=== PATIENT | female | born 1990 | race Two or more races ===

== ENCOUNTER 2016-12-04 16:23 | Emergency (ER) | payer MEDICAID ==
[2016-12-04 16:37] VITALS: BP 123/59
[2016-12-04] MEDS ORDERED: HYDROmorphone 2 MG/ML SDV IM ONE (16:55)
[2016-12-04] MEDS ORDERED: Ketorolac 30 MG/ML SDV IM ONE (16:56)
[2016-12-04] MEDS ORDERED: Ondansetron 4 MG Tab.DIS PO SCH (17:00)
--- NOTE | 2016-12-09 15:46 | ER ---
DATE SEEN: 12/04/2016 HISTORY OF PRESENT ILLNESS: This 26-year-old [place] woman comes in with a sharp onset of epigastric discomfort between 12 and 1300 hours today. No unusual foods eaten but on end-inspiration she has pain. No history of heavy lifting, falling, or trauma. She has a past medical history of ulcers, cholecystectomy. She had a cheese burger at 1200 hours. She denies heavy lifting. 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 She is bipolar and has used Lamictal in the past, but has not had Lamictal filled for some time as she has not seen her doctor in some time. Other significant history is dental pain, ovarian cysts, gastritis, migraines. The patient notes that all she ate today was a banana and a cheeseburger. She did not feel there is a relationship to the two foods. When discussing ibuprofen, she states sometimes she has had discomfort with ibuprofen in the past with epigastric abdominal pain. She denies blood in her stool, black tarry stool, constipation, change in bowels, or diarrhea. LAST MENSTRUAL PERIOD: End of October. 4, para 4-0-0-4. The patient is a nonsmoker. MEDICATIONS: None, although she is supposed to be on Lamictal for depression. ALLERGIES: Ibuprofen and Reglan (Metoclopramide). REVIEW OF SYSTEMS: Otherwise is negative. PHYSICAL EXAMINATION: VITAL SIGNS: Blood pressure 123/54, heart rate 73 and regular, respirations 20, oxygen saturation 100%, temperature is 36.8 degrees centigrade. GENERAL: Alert woman. CONSTITUTION: Marked abdominal discomfort. She is lying in a position on her left side. She has most of the pain to right anterior chest. She is not diaphoretic. PERRLA intact. Pharynx without abnormality. No thyromegaly or masses. NECK: No cervical adenopathy. MOUTH: Mucosa is moist. LUNGS: Clear to auscultation without rales, rhonchi, or wheezes. HEART: S1, S2. No murmur. No irregular rate or rhythm. ABDOMEN: Soft. No guarding. No abdominal discomfort. Chest wall, ribs 9, 10, and 11 anterior axillary line and midaxillary line are tender and cause marked pain. She is reluctant to have me press on them. No spinous process tenderness. Interspinous ligament discomfort in her back. ABDOMEN: Soft. No guarding or rebound. Bowel sounds normal. No hepatosplenomegaly. EXTREMITIES: Without edema. DIAGNOSTIC DATA: Quick look ultrasound demonstrates slide sign in both lungs-no evidence for pneumothorax. Heart has slow rhythm with good contractility and good vena cava contractility. No pericardial effusion. ASSESSMENT: Costochondritis ribs 9, 10, and 11 right side. Etiology indeterminate. Perhaps mild intercostal myalgia associated with this. Because the patient has exquisite pain and low pain threshold, Dilaudid 1 mg IM and 30 mg Toradol IM plus 4 mg Zofran given. The patient has 8 tablets of Vicodin to use for breakthrough pain. She is to use the pain medicine upfront first 12 hours then gradually space out the use of her Vicodin. She states she has a drug reaction to ibuprofen, has gastritis when using ibuprofen. Use Tylenol 1000 mg for every 4-6 hours p.r.n. Follow up with her doctor in a week, earlier if not improved. DIAGNOSES: 1. Right 8, 9, and 10 costochondritis, mild sternal chondritis. 2. Noncompliant use of Lamictal for bipolar disease. 3. History of acid peptic disease, but exacerbated with ibuprofen. 4. 4, para 4-0-0-4. 5. No evidence for pneumothorax or rib fracture based on clinical exam and no pericardial effusion on the basis of the quick look ultrasound. The patient was seen at 1636 hours. /[id number] RASHI/NASIM
== END 2016-12-04 17:25 | disposition home or self-care (01) ==
LOC: FB.ED 16:23
DX: M94.0 Chondrocostal junction syndrome [Tietze] (principal); Z88.6 Allergy status to analgesic agent; Z87.11 Personal history of peptic ulcer disease; Z88.8 Allergy status to other drugs, medicaments and biological substances
CPT/HCPCS: 96372; 99283; A9270; J1170; J1885

== ENCOUNTER 2017-02-07 14:09 | Emergency (ER) | payer MEDICAID ==
[2017-02-07 14:31] VITALS: BP 135/66
--- NOTE | 2017-02-07 15:31 | EDM.PDOC ---
ED HPI GENERAL MEDICAL PROBLEM - General Chief Complaint: Gastrointestinal Problem Stated Complaint: LEFT SIDE ABD PAIN Time Seen by Provider: 02/07/17 14:10 Source of Information: Reports: Patient, Family - History of Present Illness INITIAL COMMENTS - FREE TEXT/NARRATIVE: 26 y.o.w.f came to the ed because of dizziness. Pt has an active live style, could be . No vertigo. No N/V/D or any other med issues. No F/C Onset: Unknown/Unsure Onset Date: 02/07/17 Onset Time: 08:00 Duration: Day(s): Location: Reports: Generalized Quality: Reports: Other (dizzy, denies drug use) Severity: Mild Improves with: Reports: None, Other (nothing) Worsens with: Reports: None Associated Symptoms: Reports: No Other Symptoms - Related Data Allergies Allergy/AdvReac Type Severity Reaction Status Date / Time ibuprofen Allergy Stomach Verified 02/07/17 14:25 Upset metoclopramide HCl Allergy Shaking Verified 02/07/17 14:25 [From Reglan] Home Meds: Home Meds Ferrous Sulfate [Iron] 325 mg PO DAILY PRN 02/07/17 [History] Past Medical History - Past Health History Medical/Surgical History: Denies Medical/Surgical History HEENT History: Reports: Other (See Below) Other HEENT History: Dental abscess. 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: Reports: , Other (See Below) Other OB/BYN History: Neurological History: Reports: Migraines Psychiatric History: Reports: Anxiety, Bipolar - Past Surgical History GI Surgical History: Reports: Cholecystectomy Social & Family History - Family History Family Medical History: Noncontributory - Tobacco Use Smoking Status *Q: Never Smoker Years of Tobacco use: 2 Second Hand Smoke Exposure: No - Caffeine Use Caffeine Use: Reports: Soda - Alcohol Use Days Per Week of Alcohol Use: 0 Number of Drinks Per Day: 4 Total Drinks Per Week: 0 - Recreational Drug Use Recreational Drug Use: No ED ROS GENERAL - Review of Systems Review Of Systems: See Below Constitutional: Reports: No Symptoms HEENT: Reports: No Symptoms Respiratory: Reports: No Symptoms Cardiovascular: Reports: No Symptoms Endocrine: Reports: No Symptoms GI/Abdominal: Reports: No Symptoms : Reports: No Symptoms Musculoskeletal: Reports: No Symptoms Skin: Reports: No Symptoms Neurological: Reports: No Symptoms Psychiatric: Reports: No Symptoms Hematologic/Lymphatic: Reports: No Symptoms Immunologic: Reports: No Symptoms ED EXAM - Physical Exam Exam: See Below Exam Limited By: No Limitations General Appearance: Alert, WD/WN, No Apparent Distress Eye Exam: Bilateral Eye: Normal Inspection Ears: Normal External Exam Nose: Normal Inspection Throat/Mouth: Normal Inspection Head: Atraumatic Neck: Normal Inspection Respiratory/Chest: No Respiratory Distress, Lungs Clear, Normal Breath Sounds Cardiovascular: Normal Peripheral Pulses GI/Abdominal Exam: Normal Bowel Sounds, Soft, Non-Tender Rectal Exam: Deferred Back Exam: Normal Inspection, Full Range of Motion Extremities: Normal Inspection, Normal Range of Motion, Non-Tender, No Pedal Edema, Normal Capillary Refill Neurological: Alert, Oriented, CN II-XII Intact, Normal Cognition, Normal Gait Psychiatric: Normal Affect, Normal Mood Skin Exam: Warm, Dry, Intact Lymphatic: No Adenopathy Course - Vital Signs Text/Narrative:: 26 y.o.w.f came to the ed because of dizziness. Pt has an active live style, could be . No vertigo. No N/V/D or any other med issues. No F/C PE: WNWDWF NAD Ortho static neg, no vertigo, dry mucosal membrans Labs: HCG neg Impression: Dehydration Tx: Water PO Reexam; Improved Plan: D/C with instructions Last Recorded V/S: Last Vital Signs Temp 37.0 C 02/07/17 14:10 Pulse 63 02/07/17 14:10 Resp 18 02/07/17 14:10 BP 135/66 02/07/17 14:10 Pulse Ox 100 02/07/17 14:10 Orthostatic Blood Pressure [ 130/68 Standing] Orthostatic Blood Pressure [ 114/72 Sitting] Orthostatic Blood Pressure [ 119/63 Supine] - Orders/Labs/Meds Labs: Laboratory Tests 02/07/17 02/07/17 Range/Units 14:39 14:39 Urine Color Yellow (YELLOW) Urine Appearance Clear (CLEAR) Urine pH 6.0 (5.0-6.5) Ur Specific [place] 1.020 (1.010-1.025) Urine Protein Negative (NEGATIVE) mg/dL Urine Glucose (UA) Normal (NEGATIVE) mg/dL Urine Ketones Negative (NEGATIVE) mg/dL Urine Occult Blood Negative (NEGATIVE) Urine Nitrite Negative (NEGATIVE) Urine Bilirubin Negative (NEGATIVE) Urine Urobilinogen Normal (NEGATIVE) mg/dL Ur Leukocyte Esterase Negative (NEGATIVE) Urine RBC 0-5 (0) Urine WBC 0-5 (0) Ur Squamous Epith Cells Few H (NS,R,O) Urine Bacteria Few H (NS) Urine HCG, Qual Negative (NEGATIVE) Departure - Departure Time of Disposition: 15:30 Disposition: Home, Self-Care 01 Condition: Good Clinical Impression: Dehydration - Discharge Information Instructions: Dehydration, Adult, [id number] Referrals: Joseph Terry MD [Primary Care Provider] - Forms: ED Department Discharge Additional Instructions: Please increase water intake please f/u, please come back if your symptoms get worse acutely
== END 2017-02-07 15:35 | disposition home or self-care (01) ==
LOC: FB.ED 14:09
DX: E86.0 Dehydration (principal); G43.909 Migraine, unspecified, not intractable, without status migrainosus; F41.9 Anxiety disorder, unspecified; F31.9 Bipolar disorder, unspecified; Z88.8 Allergy status to other drugs, medicaments and biological substances; Z90.49 Acquired absence of other specified parts of digestive tract; Z68.25 Body mass index [BMI] 25.0-25.9, adult
CPT/HCPCS: 81001; 81025; 99284

== ENCOUNTER 2017-06-02 19:24 | Emergency (ER) | payer MEDICAID ==
[2017-06-02 19:42] VITALS: BP 114/60
[2017-06-02] MEDS ORDERED: Ondansetron 4 MG Tab.DIS PO ONE (20:49)
--- NOTE | 2017-06-03 12:37 | ER ---
DATE SEEN: 06/02/2017 TIME SEEN: The patient was seen approximately at 1950 hours. HISTORY OF PRESENT ILLNESS: This 4, para 4-0-0-4 woman, notes she has slight right lower quadrant abdominal discomfort. She is 6 weeks . Ms. Hernández complains that she has felt sick, not well since yesterday. She denies frequency, urgency, dysuria, or nausea or vomiting, or back pain, or previous history of kidney stones, or abdominal surgery. REVIEW OF SYSTEMS: Otherwise negative presently. CURRENT MEDICATIONS: She apparently is not on vitamins as yet. She is not apparently on iron sulfate. ALLERGIES: Ibuprofen and Reglan. PHYSICAL EXAMINATION: VITAL SIGNS: Blood pressure 114/60, heart rate 71, respirations 18, oxygen saturation 100%, and temperature is 36.7 degrees centigrade. CONSTITUTIONAL: The patient lying in a position. She has mild discomfort. Pain is about 5 to 6/10. HEENT: Pharynx with moist mucosa. TMs negative. No sinus pressure. No cervical adenopathy or thyromegaly or masses in neck. LUNGS: Clear without rales, rhonchi, or wheezes. HEART: S1, S2. No murmur. No irregular rate or rhythm. ABDOMEN: Soft. No guarding. Mild discomfort in right lower quadrant. No guarding. No rebound. No CVA percussion tenderness. PELVIC: Not performed. No history of vaginal bleeding. EXTREMITIES: Legs without abnormality of the vascular structures. LABORATORY DATA: Urinalysis normal. Quick-look ultrasound, I did not see the gestational sac. ASSESSMENT: 1. History of 6 weeks . 2. 4, para 4-0-0-4. 3. Right lower quadrant discomfort, etiology indeterminate, possibly uterosacral ligaments strain. No evidence for ovarian cyst on the basis of quick-look ultrasound. No suggestion of ectopic . PLAN: Follow up with doctor in 24 to 72 hours if worse, otherwise in 7 days. No sign of urinary tract infection. The patient dismissed. /[id number] LS/MODL
== END 2017-06-02 21:10 | disposition home or self-care (01) ==
LOC: FB.ED 19:24
DX: O99.89 Other specified diseases and conditions complicating pregnancy, childbirth and the puerperium (principal); R10.31 Right lower quadrant pain; Z3A.08 8 weeks gestation of pregnancy; Z88.6 Allergy status to analgesic agent
CPT/HCPCS: 81001; 87081; 87086; 87430; 87804; 99283; A9270-GY

== ENCOUNTER 2017-06-06 19:51 | Emergency (ER) | payer MEDICAID ==
[2017-06-06] MEDS ORDERED: Sodium Chloride 0.9% 1,000 ML IV ONE ×2 (20:08→21:44)
[2017-06-06] MEDS ORDERED: Promethazine 12.5 MG in Sodium Chloride 0.9% 50 ML IV STA (20:09)
[2017-06-06] MEDS: Sodium Chloride 0.9% 10 ML Syringe FLUSH PRN ×2 (20:10→22:43)
--- NOTE | 2017-06-06 20:12 | EDM.PDOC ---
ED HPI GENERAL MEDICAL PROBLEM - General Chief Complaint: Gastrointestinal Problem Stated Complaint: VOMITING ALL DAY Time Seen by Provider: 06/06/17 19:59 Source of Information: Reports: Patient, Family History Limitations: Reports: No Limitations - History of Present Illness INITIAL COMMENTS - FREE TEXT/NARRATIVE: 27 y.o. female AB0, 6 weeks , came to the ed due nausea and vomiting for one day, not able to keep any food down. Pt had hyperemesis gravidarum at her 4th . No dizziness or lightheadedness or any other acute medical issues at this time. BP 120/66 pulse 69 temp 36.4 Pulse ox 99% on RA. Onset: Gradual Onset Date: 06/05/17 Onset Time: 08:00 Duration: Hour(s):, Intermittent Location: Reports: Abdomen Quality: Reports: Other (N/V 6 weeks ) Improves with: Reports: Rest Worsens with: Reports: Eating Context: Reports: Other (6 weeks ) - Related Data Allergies Allergy/AdvReac Type Severity Reaction Status Date / Time ibuprofen Allergy Stomach Verified 02/07/17 14:25 Upset metoclopramide HCl Allergy Shaking Verified 02/07/17 14:25 [From Reglan] Home Meds: Home Meds Ferrous Sulfate [Iron] 325 mg PO DAILY PRN 02/07/17 [History] Past Medical History - Past Health History Medical/Surgical History: Denies Medical/Surgical History HEENT History: Reports: Other (See Below) Other HEENT History: Dental abscess. Gastrointestinal History: Reports: Cholelithiasis VALET History: Reports: , Other (See Below) Other OB/BYN History: Neurological History: Reports: Migraines Psychiatric History: Reports: Anxiety, Bipolar Oncologic (Cancer) History: Reports: Other (See Below) Other Oncologic History: ? cancerous cells in cervix - Past Surgical History GI Surgical History: Reports: Cholecystectomy Oncologic Surgical History: Reports: Other (See Below) Other Oncologic Surgeries/Procedures: leap procedure Social & Family History - Family History Family Medical History: Noncontributory - Tobacco Use Smoking Status *Q: Never Smoker Years of Tobacco use: 2 Used Tobacco, but Quit: Yes Month Tobacco Last Used: unknown Second Hand Smoke Exposure: No - Caffeine Use Caffeine Use: Reports: None - Alcohol Use Days Per Week of Alcohol Use: 0 Number of Drinks Per Day: 4 Total Drinks Per Week: 0 - Recreational Drug Use Recreational Drug Use: No ED ROS GENERAL - Review of Systems Review Of Systems: See Below Constitutional: Reports: No Symptoms HEENT: Reports: No Symptoms Respiratory: Reports: No Symptoms Cardiovascular: Reports: No Symptoms Endocrine: Reports: No Symptoms GI/Abdominal: Reports: No Symptoms : Reports: Pain (LLQ, minor) Musculoskeletal: Reports: No Symptoms Skin: Reports: No Symptoms Neurological: Reports: No Symptoms Psychiatric: Reports: No Symptoms Hematologic/Lymphatic: Reports: No Symptoms Immunologic: Reports: No Symptoms ED EXAM, GI/ABD - Physical Exam Exam: See Below Exam Limited By: No Limitations General Appearance: Alert, WD/WN, Mild Distress Eyes: Bilateral: Normal Appearance Ears: Normal External Exam, Normal Canal Nose: Normal Inspection, Normal Mucosa, No Blood Throat/Mouth: Normal Lips, Normal Teeth, Normal Gums, No Airway Compromise, Other (dry mucosal membranes) Head: Atraumatic, Normocephalic Neck: Normal Inspection, Supple, Non-Tender, Full Range of Motion Respiratory/Chest: No Respiratory Distress, Lungs Clear, Normal Breath Sounds, Chest Non-Tender Cardiovascular: Normal Peripheral Pulses, Regular Rate, Rhythm, No Edema, No Gallop, No Murmur, No Rub GI/Abdominal Exam: Normal Bowel Sounds, Soft, Non-Tender, No Organomegaly, No Abnormal Bruit, No Mass, Pelvis Stable (Female) Exam: Deferred Rectal (Female) Exam: Deferred Back Exam: Normal Inspection, Full Range of Motion Extremities: Normal Inspection, Normal Range of Motion, Non-Tender, No Pedal Edema, Normal Capillary Refill Neurological: Alert, Oriented, CN II-XII Intact, Normal Cognition, Normal Gait, No Motor/Sensory Deficits Psychiatric: Normal Affect, Normal Mood Skin Exam: Warm, Intact, Normal Color, No Rash Lymphatic: No Adenopathy Course - Vital Signs Text/Narrative:: 27 y.o. female AB0, 6 weeks , came to the ed due nausea and vomiting for one day, not able to keep any food down. 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 Pt had hyperemesis gravidarum at her 4th . No dizziness or lightheadedness or any other acute medical issues at this time. BP 120/66 pulse 69 temp 36.4 Pulse ox 99% on RA. PE: WNWD female in NAD with N/V and left lower pelvic discomfort Labs: HCG > 7400 UA neg for UTI K 3.4 Impression: Hyperemesis gravidarum, Dehydration Tx: Phenmary, Teresa, NS Reexam: Improved, pt was able to keep water down. Plan: D/C with instructions Last Recorded V/S: Last Vital Signs Temp 36.6 C 06/06/17 19:59 Pulse 69 06/06/17 19:59 Resp 18 06/06/17 19:59 BP 120/66 06/06/17 19:59 Pulse Ox 100 06/06/17 19:59 - Orders/Labs/Meds Orders: Active Orders 24 hr Category Date Time Status Sodium Chloride 0.9% [Saline Flush] Med 06/06/17 20:26 Active 10 ml FLUSH ASDIRECTED PRN Peripheral IV Insertion Adult [OM.PC] Routine Oth 06/06/17 20:10 Ordered Medication Orders Sodium Chloride (Saline Flush) 10 ml FLUSH ASDIRECTED PRN PRN Reason: Keep Vein Open Last Admin: 06/06/17 22:43 Dose: 10 ml Admin: 06/06/17 20:10 Dose: 10 ml Labs: Laboratory Tests 06/06/17 06/06/17 06/06/17 Range/Units 20:15 20:15 20:15 WBC 8.7 (4.5-12.0) X10-3/uL RBC 4.10 (3.23-5.20) x10(6)uL Hgb 11.0 L (11.5-15.5) g/dL Hct 33.0 (30.0-51.3) % MCV 80.4 (80-96) fL MCH 26.7 L (27.7-33.6) pg MCHC 33.2 (32.2-35.4) g/dL RDW 15.4 (11.5-15.5) % Plt Count 278 (125-369) X10(3)uL MPV 8.6 (7.4-10.4) fL Neut % (Auto) 77.5 (46-82) % Lymph % (Auto) 14.1 (13-37) % [place] % (Auto) 8.0 (4-12) % Eos % (Auto) 0 L (1.0-5.0) % Baso % (Auto) 0 (0-2) % Neut # (Auto) 6.8 (1.6-8.3) # Lymph # (Auto) 1.2 (0.6-5.0) # [place] # (Auto) 0.7 (0.0-1.3) # Eos # (Auto) 0.0 (0.0-0.8) # Baso # (Auto) 0.0 (0.0-0.2) # Sodium 139 (135-145) mmol/L Potassium 3.4 L (3.5-5.3) mmol/L Chloride 102 (100-110) mmol/L Carbon Dioxide 24 (21-32) mmol/L BUN 10 (7-18) mg/dL Creatinine 0.6 (0.55-1.02) mg/dL Est Cr Clr Drug Dosing 119.47 mL/min Estimated GFR (MDRD) > 60 (>60) BUN/Creatinine Ratio 16.7 (9-20) Glucose 92 (80-116) mg/dL Calcium 9.2 (8.6-10.2) mg/dL HCG, Quant 21317 (<5) mIU/mL Urine Color (YELLOW) Urine Appearance (CLEAR) Urine pH (5.0-6.5) Ur Specific [place] (1.010-1.025) Urine Protein (NEGATIVE) mg/dL Urine Glucose (UA) (NEGATIVE) mg/dL Urine Ketones (NEGATIVE) mg/dL Urine Occult Blood (NEGATIVE) Urine Nitrite (NEGATIVE) Urine Bilirubin (NEGATIVE) Urine Urobilinogen (NEGATIVE) mg/dL Ur Leukocyte Esterase (NEGATIVE) Urine RBC (0) Urine WBC (0) Ur Squamous Epith Cells (NS,R,O) Calcium Oxalate Crystal (NS) Urine Bacteria (NS) 06/06/17 Range/Units 21:40 WBC (4.5-12.0) X10-3/uL RBC (3.23-5.20) x10(6)uL Hgb (11.5-15.5) g/dL Hct (30.0-51.3) % MCV (80-96) fL MCH (27.7-33.6) pg MCHC (32.2-35.4) g/dL RDW (11.5-15.5) % Plt Count (125-369) X10(3)uL MPV (7.4-10.4) fL Neut % (Auto) (46-82) % Lymph % (Auto) (13-37) % [place] % (Auto) (4-12) % Eos % (Auto) (1.0-5.0) % Baso % (Auto) (0-2) % Neut # (Auto) (1.6-8.3) # Lymph # (Auto) (0.6-5.0) # [place] # (Auto) (0.0-1.3) # Eos # (Auto) (0.0-0.8) # Baso # (Auto) (0.0-0.2) # Sodium (135-145) mmol/L Potassium (3.5-5.3) mmol/L Chloride (100-110) mmol/L Carbon Dioxide (21-32) mmol/L BUN (7-18) mg/dL Creatinine (0.55-1.02) mg/dL Est Cr Clr Drug Dosing mL/min Estimated GFR (MDRD) (>60) BUN/Creatinine Ratio (9-20) Glucose (80-116) mg/dL Calcium (8.6-10.2) mg/dL HCG, Quant (<5) mIU/mL Urine Color Yellow (YELLOW) Urine Appearance Slightly cloudy (CLEAR) Urine pH 6.0 (5.0-6.5) Ur Specific [place] 1.020 (1.010-1.025) Urine Protein Negative (NEGATIVE) mg/dL Urine Glucose (UA) Normal (NEGATIVE) mg/dL Urine Ketones 50 H (NEGATIVE) mg/dL Urine Occult Blood Negative (NEGATIVE) Urine Nitrite Negative (NEGATIVE) Urine Bilirubin Negative (NEGATIVE) Urine Urobilinogen Normal (NEGATIVE) mg/dL Ur Leukocyte Esterase Negative (NEGATIVE) Urine RBC 0-5 (0) Urine WBC 0-5 (0) Ur Squamous Epith Cells Few H (NS,R,O) Calcium Oxalate Crystal Occasional H (NS) Urine Bacteria Few H (NS) Meds: Medications Generic Name Dose Route Start Last Admin Trade Name Freq PRN Reason Stop Dose Admin Sodium Chloride 10 ml 06/06/17 20:26 06/06/17 22:43 Saline Flush FLUSH 10 ml ASDIRECTED PRN Administration Keep Vein Open Discontinued Medications Generic Name Dose Route Start Last Admin Trade Name Freq PRN Reason Stop Dose Admin Sodium Chloride 1,000 mls @ 999 mls/hr 06/06/17 20:08 06/06/17 20:15 Normal Saline IV 06/06/17 21:08 999 mls/hr .BOLUS ONE Administration Promethazine HCl 12.5 mg/ 50.5 mls @ 200 mls/hr 06/06/17 20:09 06/06/17 20:23 Sodium Chloride IV 06/06/17 20:24 200 mls/hr ONETIME STA Administration Sodium Chloride 1,000 mls @ 999 mls/hr 06/06/17 21:44 06/06/17 21:52 Normal Saline IV 06/06/17 22:44 999 mls/hr .BOLUS ONE Administration Ondansetron HCl 8 mg 06/06/17 22:23 06/06/17 22:43 Zofran IVPUSH 06/06/17 22:24 8 mg ONETIME ONE Administration Departure - Departure Time of Disposition: 23:28 Disposition: Home, Self-Care 01 Condition: Good Clinical Impression: Hyperemesis gravidarum, Dehydration - Discharge Information Instructions: Nausea and Vomiting, Adult, [id number] Referrals: Joseph Terry MD [Primary Care Provider] - Forms: ED Department Discharge Additional Instructions: Please advance diet as tolerated, please take Zofran for nausea, please f/u with your PMD/OBGYN please come back if your symptoms get worse acutely - My Orders Last 24 Hours: My Active Orders 06/06/17 20:10 Peripheral IV Insertion Adult [OM.PC] Routine 06/06/17 20:26 Sodium Chloride 0.9% [Saline Flush] 10 ml FLUSH ASDIRECTED PRN - Assessment/Plan Last 24 Hours: My Active Orders 06/06/17 20:10 Peripheral IV Insertion Adult [OM.PC] Routine 06/06/17 20:26 Sodium Chloride 0.9% [Saline Flush] 10 ml FLUSH ASDIRECTED PRN
[2017-06-06] MEDS ORDERED: Ondansetron 4 MG/2 ML SDV IVPUSH ONE (22:23)
[2017-06-07 00:45] VITALS: BP 106/56
== END 2017-06-06 23:30 | disposition home or self-care (01) ==
LOC: FB.ED 19:51
DX: O21.1 Hyperemesis gravidarum with metabolic disturbance (principal); Z3A.01 Less than 8 weeks gestation of pregnancy; Z88.6 Allergy status to analgesic agent; Z88.8 Allergy status to other drugs, medicaments and biological substances; Z79.899 Other long term (current) drug therapy; Z87.891 Personal history of nicotine dependence
CPT/HCPCS: 36415; 80048; 81001; 84702; 85025; 96361; 96374; 96375; 99284; J2405; J2550; J7040; J7050; J7030

== ENCOUNTER 2017-06-13 11:33 | Emergency (ER) | payer MEDICAID ==
[2017-06-13] MEDS ORDERED: Promethazine 12.5 MG in Sodium Chloride 0.9% 50 ML IV STA (12:18)
[2017-06-13] MEDS ORDERED: Sodium Chloride 0.9% 1,000 ML IV ONE (12:18)
--- NOTE | 2017-06-13 12:20 | EDM.PDOC ---
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 The dizziness subsided after the pt was hydrated and antinausea meds were given. Pt was seen yesterday in the clinic and came to ED today because of severe dizziness with any kind of movement. Dizziness subsides entirely if the patient does not move any body parts. Pt is nauseated as well but did not vomit today. No trauma. No other acute medical issues. BP 107/56 pulse 66 Temp 36.6 Pulse ox 99% on RA. 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: Other (see below) (zofran) - Related Data Allergies Allergy/AdvReac Type Severity Reaction Status Date / Time ibuprofen Allergy Stomach Verified 06/13/17 11:43 Upset metoclopramide HCl Allergy Shaking Verified 06/13/17 11:43 [From Reglan] Home Meds: Home Meds Meclizine [Antivert] 25 mg PO TID PRN #20 tab.chew 06/13/17 [Rx] Prochlorperazine Maleate [Compazine] 10 mg PO BID PRN #12 tablet 06/13/17 [Rx] Promethazine HCl 25 mg PO ASDIRECTED PRN 06/13/17 [History] Past Medical History - Past Health History Medical/Surgical History: Denies Medical/Surgical History HEENT History: Reports: Other (See Below) Other HEENT History: Dental abscess. Gastrointestinal History: Reports: Cholelithiasis CLINICAL SAFETY SPECIALIST History: Reports: , Other (See Below) Other OB/BYN History: Neurological History: Reports: Migraines Psychiatric History: Reports: Anxiety, Bipolar Oncologic (Cancer) History: Reports: Other (See Below) Other Oncologic History: ? cancerous cells in cervix - Past Surgical History GI Surgical History: Reports: Cholecystectomy Oncologic Surgical History: Reports: Other (See Below) Other Oncologic Surgeries/Procedures: leap procedure Social & Family History - Family History Family Medical History: Noncontributory - Tobacco Use Smoking Status *Q: Never Smoker Years of Tobacco use: 2 Used Tobacco, but Quit: Yes Month Tobacco Last Used: unknown Second Hand Smoke Exposure: No - Caffeine Use Caffeine Use: Reports: None - Alcohol Use Days Per Week of Alcohol Use: 0 Number of Drinks Per Day: 4 Total Drinks Per Week: 0 - Recreational Drug Use Recreational Drug Use: No ED ROS GENERAL - Review of Systems Review Of Systems: See Below Constitutional: Reports: No Symptoms HEENT: Reports: No Symptoms Respiratory: Reports: No Symptoms Cardiovascular: Reports: No Symptoms Endocrine: Reports: No Symptoms GI/Abdominal: Reports: No Symptoms : Reports: No Symptoms Musculoskeletal: Reports: No Symptoms Skin: Reports: No Symptoms Neurological: Reports: No Symptoms Psychiatric: Reports: No Symptoms Hematologic/Lymphatic: Reports: No Symptoms Immunologic: Reports: No Symptoms ED EXAM, GI/ABD - Physical Exam Exam: See Below Exam Limited By: No Limitations General Appearance: Alert, WD/WN, Moderate Distress Eyes: Bilateral: Normal Appearance, Nystagmus (BPPN) Ears: Normal External Exam Nose: Normal Inspection Throat/Mouth: Normal Inspection, Normal Lips Head: Atraumatic, Normocephalic Neck: Normal Inspection, Supple, Non-Tender, Full Range of Motion Respiratory/Chest: No Respiratory Distress, Lungs Clear Cardiovascular: Normal Peripheral Pulses, Regular Rate, Rhythm, No Edema, No Gallop GI/Abdominal Exam: Normal Bowel Sounds, Soft, Non-Tender, No Organomegaly (Female) Exam: Deferred Rectal (Female) Exam: Deferred Back Exam: Normal Inspection, Full Range of Motion Extremities: Normal Inspection, Normal Range of Motion, Non-Tender, No Pedal Edema, Normal Capillary Refill Neurological: Alert, Oriented, CN II-XII Intact, Normal Cognition, Normal Gait, No Motor/Sensory Deficits Psychiatric: Normal Affect, Normal Mood Skin Exam: Warm, Dry, Intact, Normal Color, No Rash Lymphatic: No Adenopathy Course - Vital Signs Text/Narrative:: 27 y.o.w.f, 7 weeks , -G5 P 4 AB 0-was seen by myself last week for hyperemesis gravidarum, nausea and dizziness. The dizziness subsided after the pt was hydrated and antinausea meds were given. Pt was seen yesterday in the clinic and came to ED today because of severe dizziness with any kind of movement. Dizziness subsides entirely if the patient does not move any body parts. Pt is nauseated as well but did not vomit today. No trauma. No other acute medical issues. BP 107/56 pulse 66 Temp 36.6 Pulse ox 99% on RA. PE: Bilat lat nystagmus Labs: CBC/BMP Nl UA: Protein trace pH 8.0 UN +1 Ketons 50 Impression: Vertigo, Dehydration, Hyperemesis, 2.45 pm Consultation PAMELA Matos: Meclicine, Compazine are ok Tx: NS. Phenergen, compazine and Antivert Reexam: Dizziness and Nausea subsided entirely Plan: D/C with instructions Last Recorded V/S: Last Vital Signs Temp 36.1 C 06/13/17 16:36 Pulse 78 06/13/17 16:36 Resp 14 06/13/17 16:36 BP 99/66 06/13/17 16:36 Pulse Ox 100 06/13/17 16:36 - Orders/Labs/Meds Orders: Active Orders 24 hr Category Date Time Status Saline Lock Insert [OM.PC] Routine Oth 06/13/17 12:32 Ordered Labs: Laboratory Tests 06/13/17 06/13/17 06/13/17 Range/Units 12:40 12:40 12:40 WBC 8.6 (4.5-12.0) X10-3/uL RBC 4.03 (3.23-5.20) x10(6)uL Hgb 11.2 L (11.5-15.5) g/dL Hct 33.2 (30.0-51.3) % MCV 82.5 (80-96) fL MCH 27.7 (27.7-33.6) pg MCHC 33.6 (32.2-35.4) g/dL RDW 15.4 (11.5-15.5) % Plt Count 274 (125-369) X10(3)uL MPV 8.3 (7.4-10.4) fL Neut % (Auto) 75.7 (46-82) % Lymph % (Auto) 16.3 (13-37) % [place] % (Auto) 7.3 (4-12) % Eos % (Auto) 1 (1.0-5.0) % Baso % (Auto) 0 (0-2) % Neut # (Auto) 6.6 (1.6-8.3) # Lymph # (Auto) 1.4 (0.6-5.0) # [place] # (Auto) 0.6 (0.0-1.3) # Eos # (Auto) 0.0 (0.0-0.8) # Baso # (Auto) 0.0 (0.0-0.2) # Sodium 139 (135-145) mmol/L Potassium 3.6 (3.5-5.3) mmol/L Chloride 103 (100-110) mmol/L Carbon Dioxide 27 (21-32) mmol/L BUN 7 (7-18) mg/dL Creatinine 0.6 (0.55-1.02) mg/dL Est Cr Clr Drug Dosing 119.47 mL/min Estimated GFR (MDRD) > 60 (>60) BUN/Creatinine Ratio 11.7 (9-20) Glucose 89 (80-116) mg/dL Calcium 9.4 (8.6-10.2) mg/dL HCG, Quant 218130 (<5) mIU/mL Urine Color (YELLOW) Urine Appearance (CLEAR) Urine pH (5.0-6.5) Ur Specific [place] (1.010-1.025) Urine Protein (NEGATIVE) mg/dL Urine Glucose (UA) (NEGATIVE) mg/dL Urine Ketones (NEGATIVE) mg/dL Urine Occult Blood (NEGATIVE) Urine Nitrite (NEGATIVE) Urine Bilirubin (NEGATIVE) Urine Urobilinogen (NEGATIVE) mg/dL Ur Leukocyte Esterase (NEGATIVE) Urine WBC (0) Ur Squamous Epith Cells (NS,R,O) Urine Bacteria (NS) 06/13/17 Range/Units 12:40 WBC (4.5-12.0) X10-3/uL RBC (3.23-5.20) x10(6)uL Hgb (11.5-15.5) g/dL Hct (30.0-51.3) % MCV (80-96) fL MCH (27.7-33.6) pg MCHC (32.2-35.4) g/dL RDW (11.5-15.5) % Plt Count (125-369) X10(3)uL MPV (7.4-10.4) fL Neut % (Auto) (46-82) % Lymph % (Auto) (13-37) % [place] % (Auto) (4-12) % Eos % (Auto) (1.0-5.0) % Baso % (Auto) (0-2) % Neut # (Auto) (1.6-8.3) # Lymph # (Auto) (0.6-5.0) # [place] # (Auto) (0.0-1.3) # Eos # (Auto) (0.0-0.8) # Baso # (Auto) (0.0-0.2) # Sodium (135-145) mmol/L Potassium (3.5-5.3) mmol/L Chloride (100-110) mmol/L Carbon Dioxide (21-32) mmol/L BUN (7-18) mg/dL Creatinine (0.55-1.02) mg/dL Est Cr Clr Drug Dosing mL/min Estimated GFR (MDRD) (>60) BUN/Creatinine Ratio (9-20) Glucose (80-116) mg/dL Calcium (8.6-10.2) mg/dL HCG, Quant (<5) mIU/mL Urine Color Yellow (YELLOW) Urine Appearance Slightly cloudy (CLEAR) Urine pH 8.0 H (5.0-6.5) Ur Specific [place] 1.015 (1.010-1.025) Urine Protein Trace (NEGATIVE) mg/dL Urine Glucose (UA) Normal (NEGATIVE) mg/dL Urine Ketones 50 H (NEGATIVE) mg/dL Urine Occult Blood Negative (NEGATIVE) Urine Nitrite Negative (NEGATIVE) Urine Bilirubin Small H (NEGATIVE) Urine Urobilinogen 1 H (NEGATIVE) mg/dL Ur Leukocyte Esterase Negative (NEGATIVE) Urine WBC 0-5 (0) Ur Squamous Epith Cells Moderate H (NS,R,O) Urine Bacteria Many H (NS) Meds: Medications Discontinued Medications Generic Name Dose Route Start Last Admin Trade Name Freq PRN Reason Stop Dose Admin Promethazine HCl 12.5 mg/ 50.5 mls @ 200 mls/hr 06/13/17 12:18 06/13/17 12:44 Sodium Chloride IV 06/13/17 12:33 200 mls/hr ONETIME STA Administration Sodium Chloride 1,000 mls @ 999 mls/hr 06/13/17 12:18 06/13/17 12:36 Normal Saline IV 06/13/17 13:18 999 mls/hr .BOLUS ONE Administration Prochlorperazine Edisylate 10 52 mls @ 150 mls/hr 06/13/17 15:43 06/13/17 15: 50 mg/ Sodium Chloride IV 06/13/17 16:03 150 mls/hr ONETIME STA Administration Meclizine HCl 50 mg 06/13/17 15:08 06/13/17 15:26 Antivert PO 06/13/17 15:09 50 mg ONETIME STA Administration Meclizine HCl 25 mg 06/13/17 15:17 06/13/17 15:24 Antivert PO 06/13/17 15:18 Not Given ONETIME ONE Ondansetron HCl 8 mg 06/13/17 15:47 Zofran IVPUSH 06/13/17 15:48 ONETIME ONE Sodium Chloride 10 ml 06/13/17 12:32 06/13/17 12:35 Saline Flush FLUSH 10 ml ASDIRECTED PRN Administration Keep Vein Open Departure - Departure Time of Disposition: 16:25 Disposition: Home, Self-Care 01 Condition: Good Clinical Impression: Hyperemesis, Vertigo Qualifiers: Weeks of gestation: less than 8 weeks Qualified Code(s): Z3A.01 - Less than 8 weeks gestation of - Discharge Information Prescriptions: Meclizine [Antivert] 25 mg PO TID PRN #20 tab.chew PRN Reason: severe dizziness Prochlorperazine Maleate [Compazine] 10 mg PO BID PRN #12 tablet PRN Reason: severe nausea Referrals: Joseph Terry MD [Primary Care Provider] - Forms: ED Department Discharge Additional Instructions: Please take the meds as recommended, please increase water intake, please f/u, come back if your symptoms get worse acutely. - My Orders Last 24 Hours: My Active Orders 06/13/17 12:32 Saline Lock Insert [OM.PC] Routine - Assessment/Plan Last 24 Hours: My Active Orders 06/13/17 12:32 Saline Lock Insert [OM.PC] Routine
[2017-06-13] MEDS ORDERED: Sodium Chloride 0.9% 10 ML Syringe FLUSH PRN (12:32)
[2017-06-13] MEDS ORDERED: Meclizine 25 MG Tab PO STA (15:08)
[2017-06-13] MEDS ORDERED: Meclizine 25 MG Tab PO ONE (15:17)
[2017-06-13] MEDS ORDERED: Prochlorperazine 10 MG in Sodium Chloride 0.9% 50 ML IV STA (15:43)
[2017-06-13] MEDS ORDERED: Ondansetron 4 MG/2 ML SDV IVPUSH ONE (15:47)
[2017-06-13 16:37] VITALS: BP 99/66
== END 2017-06-13 16:30 | disposition home or self-care (01) ==
LOC: FB.ED 11:33
DX: O21.0 Mild hyperemesis gravidarum (principal); O99.89 Other specified diseases and conditions complicating pregnancy, childbirth and the puerperium; R42 Dizziness and giddiness; Z3A.01 Less than 8 weeks gestation of pregnancy; Z88.6 Allergy status to analgesic agent; Z88.8 Allergy status to other drugs, medicaments and biological substances; Z87.891 Personal history of nicotine dependence
CPT/HCPCS: 36415; 80048; 81001; 84702; 85025; 96361; 96365; 96367; 99284; A9270; J0780; J2550; J7040; J7050

== ENCOUNTER 2017-06-14 14:31 | Inpatient (IN) | payer MEDICAID ==
[2017-06-14] MEDS: Lactated Ringers 1,000 ML IV SCH ×2 (16:07→23:58)
[2017-06-14] MEDS ORDERED: Ondansetron 4 MG/2 ML SDV ONE (16:09)
[2017-06-14] MEDS: Ondansetron 4 MG/2 ML SDV IV PRN ×2 (16:10→21:09)
--- NOTE | 2017-06-14 16:34 | US ---
INDICATION: Nausea, vomiting, dates - unsure of LMP. OB ULTRASOUND LIMITED: Utilizing transabdominal probe, multiple ultrasonic images were obtained and revealed an intrauterine gestation, which is not ideally visualized with transabdominal probe in this patient. The right ovary measured 2.92 x 2.14 x 2.70 cm for a volume of 8.83 mL. No adnexal mass lesions or free fluid collections were identified. The left ovary measured 1.36 x 2.34 cm and appears to have some follicles. It was not well visualized. IMPRESSION: Early IUP not well seen. Need endovaginal probe ultrasound for further evaluation. INDICATION: Nausea, vomiting, dates - unsure of LMP/need better visualization with transvaginal probe. TRANSVAGINAL PELVIC ULTRASOUND: Utilizing transvaginal probe, multiple ultrasonic images were obtained, revealing the intrauterine gestation with a small to moderate sized subchorionic bleed. [place] rump length was compatible with 8 weeks gestational age, which is exactly that expected by the given LMP. [place] by ultrasound for both is therefore 2017. A normal amount of amniotic fluid is seen. No adnexal mass lesions or free fluid collections were identified. Yolk sac was visualized. What appears to be a corpus luteum cyst is seen at the right ovary. There is some free fluid at the right ovary and in the posterior cul-de-sac. The left ovary showed evidence of some follicles present. No adnexal mass lesions or free fluid collections were demonstrated otherwise. IMPRESSION: Essentially normal 8-week IUP, agrees with the LMP GA. Subchorionic bleed is noted, however, of small to moderate size. Report faxed to Dr. Terry on 06/14/2017 at 1648 hours. [facility]
[2017-06-15] MEDS: Ondansetron 4 MG/2 ML SDV IV PRN ×3 (05:49→16:47)
[2017-06-15] MEDS: Lactated Ringers 1,000 ML IV SCH (08:01)
[2017-06-15] MEDS: D5 1/2 NS w/ 10 mEq/L KCl 1,000 ML IV SCH ×2 (09:31→18:04)
--- NOTE | 2017-06-15 09:51 | PN ---
DATE SEEN: 06/15/2017 SUBJECTIVE: Gisela Hernández is a 27-year-old [place] female, admitted with hyperemesis gravidarum. She had a fairly good night. Little intake of fluids, comfortable. She had lightheadedness, dizziness and mild headache. LABORATORY STUDIES: On repeat CBC, we saw hemoglobin dropped from 10.8 to 9.7, microcytic indices. Potassium 3.4 from 3.5, and liver enzymes satisfactory. PHYSICAL EXAMINATION: VITAL SIGNS: Stable. 36.9, 110/67, 16, 98%. GENERAL: Appears more comfortable. NECK: Benign. Thyroid small. CHEST: Clear. HEART: Regular. ABDOMEN: Benign. IMPRESSION: Hyperemesis gravidarum. PLAN: We will start to feed as comfortable. We will add doxylamine 12.5 mg b.i.d. We will add pyridoxine 25 mg b.i.d. Meclizine under consideration. Benadryl under consideration. We will add Zantac 150 1 p.o. b.i.d. and Xeroform. We will make adjustments of IV fluids from Ringer's lactate to D5 half-normal saline with 10 mEq of KCl. Intervention care as appropriate. Continue IV fluids. /[id number] HEMANTH/NASIM
[2017-06-15] MEDS: Vitamin B6-pyridOXINE 100 MG Tab PO SCH ×2 (10:23→20:49)
[2017-06-15] MEDS: Doxylamine Succinate 25 MG Tab PO SCH ×2 (10:25→20:51)
[2017-06-15] MEDS: Ranitidine 15 MG/ML Syrup ML (473 ML Bottle) PO SCH ×2 (10:25→20:50)
--- NOTE | 2017-06-15 13:24 | HP ---
ADMISSION DATE: 06/14/2017 REASON FOR VISIT: Complicated nausea and vomiting, significant weight loss. HISTORY OF PRESENT ILLNESS: Gisela Hernández is a 27-year-old, 5, para 4-0-0-4, [place] female, [place] resident, who was admitted by Dr. Terry. EDC thought to be sometime in mid March, episode of spotting mid April, ultrasound today confirmed a healthy , 8 weeks gestation, EDC 01/24/2018. There was a corpus luteum cyst in the right ovary and a small subchorionic bleed. All otherwise looked well. Bleeding has subsided since mid April. Nausea, vomiting, unresponsiveness, intolerance to Reglan, intolerance to oral Zofran, Phenergan with clinical benefit orally. A 7-pound weight loss has been noted. MEDICATIONS: Present medications, vitamins, not tolerated. PAST MEDICAL HISTORY: Significant for no previous operative procedures, hospitalizations, unusual childhood diseases, major injuries, or fractures. ALLERGIES: Ibuprofen and Reglan. GYNECOLOGIC HISTORY: She is 5, para 4-0-0-4 female. SOCIAL HISTORY: Happily . , 29. Children; 13, 12, 10, and 4, all girls. 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 Nonsmoker. No alcohol. No illicit drug use. FAMILY HISTORY: Parents in good health. Siblings in good health. REVIEW OF SYSTEMS: She is feeling poorly, tired, fatigable, nausea, some intermittent headaches, some lightheadedness, and some dizziness. Bowels have been reluctant. Passing urine, but with less frequency. No skin rash or joint pain. 13-bullet review of systems, otherwise unremarkable. PHYSICAL EXAMINATION: VITAL SIGNS: Temperature 36.8, pulse 70, blood pressure 106/64, respirations 18, and O2 saturations 99%. GENERAL: Appears a bit distraught, soft spoken, and lying on her left side. HEENT: Normal conjunctivae. Bright tympanic membranes. Clear nasal discharge. Mouth and oropharynx, dry mucous membranes. NECK: Benign. CHEST: Clear in all lung [place]. No adventitious sounds. HEART: Regular without ectopy or murmur. ABDOMEN: Benign. No hepatosplenomegaly. Uterus not tender. EXTREMITIES: Well perfused. SKIN: Without rash. NEUROMUSCULAR: Intact. LABORATORY STUDIES: White count 9,800, hemoglobin 10.8, microcytic indices, platelets unremarkable. Electrolytes satisfactory. ASSESSMENT: A 27-year-old, -5 female, hyperemesis gravidarum, some weight loss, in need of intervention. PLAN: IV fluid hydration, antiemetics, adjustments of dose accordingly, additions as appropriate. /[id number] HEMANTH/NASIM
[2017-06-15] MEDS: Sodium Chloride 0.9% 10 ML Syringe FLUSH PRN (16:00)
[2017-06-15] MEDS: hydrOXYzine HCl 25 MG Tab PO PRN (20:52)
[2017-06-16] MEDS: Ondansetron 4 MG/2 ML SDV IV PRN ×4 (00:52→19:16)
[2017-06-16] MEDS: D5 1/2 NS w/ 10 mEq/L KCl 1,000 ML IV SCH ×3 (02:10→18:32)
[2017-06-16] MEDS: Doxylamine Succinate 25 MG Tab PO SCH ×2 (08:29→20:32)
[2017-06-16] MEDS: Vitamin B6-pyridOXINE 100 MG Tab PO SCH ×2 (08:29→20:32)
[2017-06-16] MEDS: Ranitidine 15 MG/ML Syrup ML (473 ML Bottle) PO SCH ×2 (08:29→20:33)
--- NOTE | 2017-06-16 12:43 | PN ---
DATE SEEN: 06/16/2017 SUBJECTIVE: Gisela Hernández is a 27-year-old female, 5, para 4 female, about 9 weeks' gestation. Persistent hyperemesis gravidarum. Ultrasound on 06/14/2017 revealed a healthy eight-week IUP, agreeable with LMP, subchorionic bleed, but no complicating issue. Did have a little episode of bleeding when she wiped her bottom this morning. a little accelerated today versus tomorrow. We will check laboratory studies today and proceed accordingly. Hemoglobin had fallen with hydration from 10.8 to 9.7, slightly microcytic indices. Electrolytes were otherwise satisfactory. PRESENT MEDICATIONS: 1. Doxylamine. 2. Hydroxyzine. 3. Zofran. 4. IV fluids. 5. Pyridoxine along with Zantac. OBJECTIVE: VITAL SIGNS: Weight is 68.946 kg, temperature 37 degrees, blood pressure 98/64, mean blood pressure 74, pulse 16, and O2 saturations 98%. GENERAL: Appears a little bit more distraught today. NECK: Benign. Thyroid small. CHEST: Clear. HEART: Regular. ABDOMEN: Benign. ASSESSMENT: Hyperemesis gravidarum, up 3 pounds. PLAN: We will continue close observation. See how things go today, likely discharge home tonight. /[id number] /NASIM
[2017-06-16] MEDS: Sodium Chloride 0.9% 10 ML Syringe FLUSH PRN (15:01)
[2017-06-16] MEDS: hydrOXYzine HCl 25 MG Tab PO PRN (15:51)
[2017-06-17] MEDS: D5 1/2 NS w/ 10 mEq/L KCl 1,000 ML IV SCH (02:48)
[2017-06-17] MEDS: Sodium Chloride 0.9% 10 ML Syringe FLUSH PRN ×2 (03:05→03:57)
[2017-06-17] MEDS: Ondansetron 4 MG/2 ML SDV IV PRN (03:20)
[2017-06-17 03:24] VITALS: BP 104/63
--- NOTE | 2017-06-17 11:52 | DISCH ---
DISCHARGE DATE: 06/17/2017 HOSPITAL COURSE: Gisela Hernández is a 27-year-old female, had been admitted with complicated hyperemesis gravidarum. Clinical response with satisfactory improvement was noted. She has had intermittent episodes of troublesome anxiety. Medications onboard include: 1. Unisom. 2. Vitamin B6. 3. Zantac. 4. Promethazine for nausea. Urgent conflict during the morning hours. She requested discharge. Spoke with Dr. Terry, discharged accordingly. Appointment to follow up with Dr. Terry. Whether or not the Unisom, vitamin B6, Zantac, or antiemetics were discharged with the patient is unknown. /[id number] /NASIM
== END 2017-06-17 04:36 | disposition home or self-care (01) | DRG 781 ==
LOC: FB.MS 14:40 → OBSVTOIN 06-16 18:32
PROVIDERS: ADMIT Family Medicine; ATTEND Family Medicine
DX: O21.0 Mild hyperemesis gravidarum (principal); O20.9 Hemorrhage in early pregnancy, unspecified; O34.81 Maternal care for other abnormalities of pelvic organs, first trimester; N83.11 Corpus luteum cyst of right ovary; O99.341 Other mental disorders complicating pregnancy, first trimester; F41.9 Anxiety disorder, unspecified; Z3A.08 8 weeks gestation of pregnancy; Z88.6 Allergy status to analgesic agent; Z88.8 Allergy status to other drugs, medicaments and biological substances
CPT/HCPCS: 36415; 76815; 76817; 80053; 81003; 85025; 96361; 96374; 96376; 97140-GP; 97163-GP; A9270-GY; G0378; J2405; J3480; J7050; J7120

== ENCOUNTER 2017-10-30 09:48 | Emergency (ER) | payer MEDICAID ==
[2017-10-30] MEDS ORDERED: Ondansetron 4 MG Tab.DIS PO ONE (10:20)
[2017-10-30] MEDS ORDERED: Sodium Chloride 0.9% 10 ML Syringe FLUSH PRN (10:20)
--- NOTE | 2017-10-30 10:27 | EDM.PDOC ---
ED HPI GENERAL MEDICAL PROBLEM - General Chief Complaint: General Stated Complaint: WEAK AND DIZZY 27 WEEKS PREG Time Seen by Provider: 10/30/17 10:10 Source of Information: Reports: Patient, Family History Limitations: Reports: No Limitations - History of Present Illness INITIAL COMMENTS - FREE TEXT/NARRATIVE: Gisela comes to [facility] ED with sxs of dizziness ie lt headiness, nausea, some vomiting, and malaise over the past few days. She has had hyperemesis gravidarum in the past, and did take her last Zofran ODT yesterday. She saw PCP yesterday who prescribed Meclizine,but she did not fill the prescription. There is no headache, fever, chills,sweats, abdominal pain, contractions, or voiding sxs. The fetus has been active. She is 27 weeks gestation. - Related Data Allergies Allergy/AdvReac Type Severity Reaction Status Date / Time ibuprofen Allergy Stomach Verified 10/30/17 10:27 Upset metoclopramide HCl Allergy Shaking Verified 10/30/17 10:27 [From Reglan] Home Meds: Home Meds Vit #108/Iron/FA [ One Tablet] 1 tab PO DAILY 10/30/17 [History ] Past Medical History - Past Health History Medical/Surgical History: Denies Medical/Surgical History HEENT History: Reports: Other (See Below) Other HEENT History: Dental abscess. 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 cancerous cells in cervix - Past Surgical History GI Surgical History: Reports: Cholecystectomy Oncologic Surgical History: Reports: Other (See Below) Other Oncologic Surgeries/Procedures: leap procedure Social & Family History - Family History Family Medical History: Noncontributory - Tobacco Use Smoking Status *Q: Never Smoker Second Hand Smoke Exposure: No - Caffeine Use Caffeine Use: Reports: None - Recreational Drug Use Recreational Drug Use: No ED ROS GENERAL - Review of Systems Review Of Systems: See Below Constitutional: Reports: Malaise, Fatigue, Decreased Appetite HEENT: Reports: No Symptoms Respiratory: Reports: No Symptoms Cardiovascular: Reports: Lightheadedness Endocrine: Reports: No Symptoms GI/Abdominal: Reports: Decreased Appetite, Nausea, Vomiting : Reports: No Symptoms Musculoskeletal: Reports: No Symptoms Skin: Reports: No Symptoms Neurological: Reports: Dizziness Psychiatric: Reports: No Symptoms Hematologic/Lymphatic: Reports: No Symptoms Immunologic: Reports: No Symptoms ED EXAM, GENERAL - Physical Exam Exam: See Below Exam Limited By: No Limitations General Appearance: Alert, WD/WN, No Apparent Distress Eye Exam: Bilateral Eye: EOMI, Normal Inspection, PERRL Ears: Normal External Exam Nose: Normal Inspection Throat/Mouth: Normal Inspection, Normal Lips, Normal Gums, Normal Oropharynx, Normal Voice, No Airway Compromise Head: Normocephalic Neck: Normal Inspection, Supple Respiratory/Chest: Lungs Clear, Normal Breath Sounds Cardiovascular: Regular Rate, Rhythm, No Murmur GI/Abdominal: Normal Bowel Sounds, Soft, Non-Tender, No Organomegaly, No Distention, No Mass (Female) Exam: Enlarged Uterus Rectal (Female) Exam: Deferred Back Exam: Normal Inspection Extremities: Normal Inspection Neurological: Alert, Oriented, CN II-XII Intact, Normal Cognition, Normal Gait, No Motor/Sensory Deficits Psychiatric: Normal Affect, Normal Mood Skin Exam: Warm, Dry, Intact, Normal Color Lymphatic: No Adenopathy Course - Vital Signs Text/Narrative:: Following assessment at the [facility] ED, an IV was inserted into the RUE, and NS 1.5 L was administered, Zofran ODT 4 mg, with improvement in sxs. The UA met criterion for culture, and a UC was set up. Patient left the ED in improved condition. Last Recorded V/S: Last Vital Signs Temp 36.6 C 10/30/17 12:30 Pulse 69 10/30/17 12:30 Resp 16 10/30/17 12:30 BP 95/48 L 10/30/17 12:30 Pulse Ox 100 10/30/17 12:30 - Orders/Labs/Meds Orders: Active Orders 24 hr Category Date Time Status CULTURE URINE [RM] Stat Lab 10/30/17 10:10 Ordered UA W/MICROSCOPIC [URIN] Stat Lab 10/30/17 10:10 Ordered Peripheral IV Insertion Adult [OM.PC] Routine Oth 10/30/17 10:20 Ordered Labs: Laboratory Tests 10/30/17 Range/Units 10:10 Urine Color Yellow (YELLOW) Urine Appearance Slightly cloudy (CLEAR) Urine pH 6.5 (5.0-6.5) Ur Specific [place] 1.015 (1.010-1.025) Urine Protein Negative (NEGATIVE) mg/dL Urine Glucose (UA) Normal (NEGATIVE) mg/dL Urine Ketones Negative (NEGATIVE) mg/dL Urine Occult Blood Negative (NEGATIVE) Urine Nitrite Negative (NEGATIVE) Urine Bilirubin Small H (NEGATIVE) Urine Urobilinogen 8 H (NEGATIVE) mg/dL Ur Leukocyte Esterase Large H (NEGATIVE) Urine WBC 20-30 H (0) Ur Squamous Epith Cells Many H (NS,R,O) Urine Bacteria Many H (NS) Meds: Medications Discontinued Medications Generic Name Dose Route Start Last Admin Trade Name Freq PRN Reason Stop Dose Admin Dextrose/Lactated Ringer's 1,000 mls @ 999 mls/hr 10/30/17 10:30 10/30/17 11: 33 Dextrose 5%-Lactated Ringers IV Infused ASDIRECTED ALEX Infusion Dextrose/Lactated Ringer's 1,000 mls @ 500 mls/hr 10/30/17 11:45 10/30/17 11: 38 Dextrose 5%-Lactated Ringers IV 500 mls/hr ASDIRECTED ALEX Administration Ondansetron HCl 4 mg 10/30/17 10:20 10/30/17 10:27 Zofran Odt PO 10/30/17 10:21 4 mg ONETIME ONE Administration Sodium Chloride 10 ml 10/30/17 10:20 Saline Flush FLUSH ASDIRECTED PRN Keep Vein Open Departure - Departure Time of Disposition: 12:40 Disposition: Home, Self-Care 01 Condition: Good Clinical Impression: Vomiting or nausea of - Discharge Information Instructions: Urinary Tract Infection, Adult, [id number] Referrals: Joseph Terry MD [Primary Care Provider] - Forms: ED Department Discharge Additional Instructions: Follow-up with primary physician as necessary. Increase water intake to 6-8 glasses per day. - Problem List & Annotations (1) Vomiting or nausea of SNOMED Code(s): 98685073, 421405896 Code(s): O21.9 - VOMITING OF , UNSPECIFIED Status: Acute Annotation/Comment:: I suggested refilling the Zofran ODT prescription from home , hydration, diet as tolerated. - Problem List Review Problem List Initiated/Reviewed/Updated: Yes - My Orders Last 24 Hours: My Active Orders 10/30/17 10:10 CULTURE URINE [RM] Stat UA W/MICROSCOPIC [URIN] Stat 10/30/17 10:20 Peripheral IV Insertion Adult [OM.PC] Routine - Assessment/Plan Last 24 Hours: My Active Orders 10/30/17 10:10 CULTURE URINE [RM] Stat UA W/MICROSCOPIC [URIN] Stat 10/30/17 10:20 Peripheral IV Insertion Adult [OM.PC] Routine Plan: Her preliminary UC report should be available tomorrow for follow up at the ED.
[2017-10-30] MEDS: Dextrose 5%-Lactated Ringers 1,000 ML IV SCH ×2 (10:32→11:35)
[2017-10-30] MEDS ORDERED: Dextrose 5%-Lactated Ringers 1,000 ML IV SCH (11:45)
[2017-10-30 11:49] VITALS: BP 95/48
== END 2017-10-30 12:56 | disposition home or self-care (01) ==
LOC: FB.ED 09:48
DX: O21.9 Vomiting of pregnancy, unspecified (principal); O99.89 Other specified diseases and conditions complicating pregnancy, childbirth and the puerperium; R11.0 Nausea; Z88.8 Allergy status to other drugs, medicaments and biological substances; Z88.6 Allergy status to analgesic agent; Z3A.27 27 weeks gestation of pregnancy
CPT/HCPCS: 81001; 87086; 96360; 96361; 99284; A9270; J7042

== ENCOUNTER 2018-01-10 15:59 | Inpatient (IN) | payer MEDICAID ==
[2018-01-10] MEDS ORDERED: Sodium Chloride 0.9% 10 ML Syringe FLUSH PRN (18:23)
[2018-01-10] MEDS ORDERED: Lactated Ringers 1,000 ML IV SCH (19:15)
[2018-01-10] MEDS ORDERED: Scopolamine 1.5 MG Transdermal Patch ONE (21:37)
[2018-01-10] MEDS ORDERED: Scopolamine 1.5 MG Transdermal Patch TOP STA (22:16)
[2018-01-10] MEDS ORDERED: Nalbuphine 10 MG/1 ML Vial IVPUSH PRN (22:43)
[2018-01-10] MEDS ORDERED: Naloxone 0.4 MG/ML SDV IVPUSH PRN ×2 (22:43)
[2018-01-10] MEDS ORDERED: Promethazine 25 MG/ML SDV IV PRN (22:43)
[2018-01-10] MEDS ORDERED: Naltrexone 50 MG Tab PO SCH (22:43)
[2018-01-10] MEDS ORDERED: ePHEDrine 50 MG/ML SDV IVPUSH PRN (22:43)
[2018-01-10] MEDS ORDERED: Naltrexone 50 MG Tab PO PRN (22:43)
[2018-01-10] MEDS ORDERED: Scopolamine 1.5 MG Transdermal Patch TOP SCH (22:43)
[2018-01-10] MEDS ORDERED: diphenhydrAMINE 50 MG/ML SDV IVPUSH PRN ×2 (22:43)
[2018-01-10] MEDS ORDERED: hydrOXYzine HCl 50 MG/ML SDV IM PRN ×2 (22:43)
[2018-01-10] MEDS ORDERED: Naloxone 0.4 MG in Sodium Chloride 0.9% 100 ML IV PRN (22:43)
[2018-01-10] MEDS ORDERED: Ondansetron 4 MG/2 ML SDV IVPUSH PRN (22:51)
--- NOTE | 2018-01-10 23:03 | PCM.LDHP ---
L&D History of Present Illness - General Date of Service: 01/10/18 Admit Problem/Dx: Patient Status Order with Admit Dx/Problem 01/10/18 15:40 Admission Status [Patient Status] [ADT] Routine 01/10/18 16:19 Admission Status [Patient Status] [ADT] Routine Admission Diagnosis/Problem Admission Diagnosis/Problem Source of Information: Patient History Limitations: Reports: No Limitations - History of Present Illness Introduction:: 27 you female at 38 weeks,with raptured membranes today.Sudden onset - Related Data Allergies/Adverse Reactions: Allergies Allergy/AdvReac Type Severity Reaction Status Date / Time ibuprofen Allergy Stomach Verified 01/10/18 16:27 Upset metoclopramide HCl Allergy Shaking Verified 01/10/18 16:27 [From [employer]] Home Medications: Home Meds Vit #108/Iron/FA [ One Tablet] 1 tab PO DAILY 10/30/17 [History ] Ascorbic Acid [Vitamin C] 500 mg PO DAILY 01/10/18 [History] Ferrous Sulfate, Dried [Iron] 159 mg PO TID 01/10/18 [History] Past Medical History - Past Health History Medical/Surgical History: Denies Medical/Surgical History HEENT History: Reports: Other (See Below) Other HEENT History: Dental abscess. 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 cancerous cells in cervix - Past Surgical History HEENT Surgical History: Reports: None Cardiovascular Surgical History: Reports: None GI Surgical History: Reports: Cholecystectomy Oncologic Surgical History: Reports: Other (See Below) Other Oncologic Surgeries/Procedures: leap procedure Social & Family History - Family History Family Medical History: Noncontributory - Tobacco Use Smoking Status *Q: Never Smoker Second Hand Smoke Exposure: No - Caffeine Use Caffeine Use: Reports: Soda - Recreational Drug Use Recreational Drug Use: No H&P Review of Systems - Review of Systems: Review Of Systems: ROS reveals no pertinent complaints other than HPI. L&D Exam - Exam Exam: See Below - Vital Signs Vital Signs: Last Vital Signs Temp 98.2 F 01/10/18 16:19 Pulse 87 08/27/18 20:17 Resp 16 01/10/18 16:19 BP 124/74 01/10/18 20:07 Pulse Ox 100 01/10/18 20:17 Weight: 76.204 kg - OB Specific Contraction Duration (sec): 40-50 Contraction Frequency (min): 2-4 Contraction Intensity: Moderate - Garcia Score Garcia Score Cervix Position: Midposition Garcia Score Consistency: Soft Garcia Score Dilation: 3-4 cm Garcia Score Infant's Station: -1 ,0 - Exam General: Alert, Oriented HEENT: PERRLA, Conjunctiva Clear, EACs Clear, EOMI, Hearing Intact, Mucosa Moist & [place], Nares Patent, Normal Nasal Septum, Posterior Pharynx Clear, TMs Clear Neck: Supple, Trachea Midline Lungs: Clear to Auscultation, Normal Respiratory Effort Cardiovascular: Regular Rate, Regular Rhythm GI/Abdominal Exam: Normal Bowel Sounds, Soft, Non-Tender, No Organomegaly, No Distention, No Abnormal Bruit, No Mass, Pelvis Stable Rectal Exam: Normal Exam, Normal Rectal Tone Genitourinary: Normal external exam, Normal bimanual exam, Normal speculum exam Back Exam: Normal Inspection, Full Range of Motion Extremities: Normal Inspection, Normal Range of Motion, Non-Tender, No Pedal Edema, Normal Capillary Refill Skin: Warm, Dry, Intact Neurological: Cranial Nerves Intact, Reflexes Equal Bilateral Psychiatric: Alert, Normal Affect, Normal Mood - Patient Data Lab Results Last 24 hrs: Laboratory Results - last 24 hr 01/10/18 Range/Units 16:46 Membrane Rupture Positive H (NEGATIVE) - Problem List (1) Ruptured, membranes, premature SNOMED Code(s): 28459620 ICD Code: O42.90 - JIM ROM, 7TH0 BETW RUPT & ONST LABR, UNSP WEEKS OF GEST Status: Acute Current Visit: Yes Qualifiers: PROM onset of labor timing: onset of labor within 24 hours of rupture (2) SNOMED Code(s): 10950313 ICD Code: Z34.90 - ENCNTR FOR SUPRVSN OF NORMAL , UNSP, UNSP TRIMESTER Status: Acute Current Visit: Yes Qualifiers: Weeks of gestation: 38 weeks Qualified Code(s): Z3A.38 - 38 weeks gestation of (3) Prolonged first stage (of labor) SNOMED Code(s): 46768301 ICD Code: O63.0 - PROLONGED FIRST STAGE (OF LABOR) Status: Acute Current Visit: Yes Problem List Initiated/Reviewed/Updated: Yes Orders Last 24hrs: Active Orders 24 hr Category Date Time Status Admission Status [Patient Status] [ADT] Routine ADT 01/10/18 15:40 Active Admission Status [Patient Status] [ADT] Routine ADT 01/10/18 16:19 Active Communication Order [RC] ASDIRECTED Care 01/10/18 19:04 Active Communication Order [RC] ASDIRECTED Care 01/10/18 19:04 Active Communication Order [RC] ASDIRECTED Care 01/10/18 19:04 Active Communication Order [RC] ASDIRECTED Care 01/10/18 19:04 Active Non Stress Test [RC] Click to Edit Care 01/10/18 19:04 Active Notify Provider [RC] PRN Care 01/10/18 19:04 Active Notify Provider [RC] STAT Care 01/10/18 19:04 Active Vital Signs [RC] PER UNIT ROUTINE Care 01/10/18 19:04 Active AMNISURE RUPTURE MEMBRAN [BF] Stat Lab 01/10/18 16:46 Ordered Lactated Ringers [Ringers, Lactated] 1,000 ml Med 01/10/18 19:15 Active IV ASDIRECTED Nalbuphine [Nubain] Med 01/10/18 22:43 Active 10 mg IVPUSH Q1H PRN Naloxone [Narcan] Med 01/10/18 22:43 Active 0.1 mg IVPUSH ASDIRECTED PRN Naloxone [Narcan] Med 01/10/18 22:43 Active 0.2 mg IVPUSH ASDIRECTED PRN Naloxone [Narcan] 0.4 mg Med 01/10/18 22:43 Active Sodium Chloride 0.9% [Normal Saline] 100 ml IV ASDIRECTED Naltrexone Med 01/10/18 22:43 Active 50 mg PO ASDIRECTED PRN Naltrexone Med 01/10/18 22:43 Active 50 mg PO ONETIME Ondansetron [Zofran] Med 01/10/18 22:51 Active 4 mg IVPUSH Q6H PRN Oxytocin/Normal Saline [Pitocin in NS 20 Units/1,000 ML Med 01/10/18 19:15 Active ] 20 unit in 1,000 ml IV TITRATE Promethazine [Phenergan] Med 01/10/18 22:43 Active 0 mg IV Q4H PRN Remove Patch Med 01/10/18 22:43 Active 1 ea TRDERM ASDIRECTED Scopolamine [Transderm-Scop] Med 01/10/18 22:43 Active 1.5 mg TOP ONETIME Sodium Chloride 0.9% [Saline Flush] Med 01/10/18 18:23 Active 10 ml FLUSH ASDIRECTED PRN diphenhydrAMINE [Benadryl] Med 01/10/18 22:43 Active 25 mg IVPUSH ASDIRECTED PRN diphenhydrAMINE [Benadryl] Med 01/10/18 22:43 Active 25 mg IVPUSH ASDIRECTED PRN ePHEDrine [ePHEDrine Sulfate] Med 01/10/18 22:43 Active 5 mg IVPUSH ASDIRECTED PRN hydrOXYzine HCl [Vistaril] Med 01/10/18 22:43 Active 25 - 50 mg IM Q4H PRN hydrOXYzine HCl [Vistaril] Med 01/10/18 22:43 Active 25 - 50 mg IM Q6H PRN Saline Lock Insert [OM.PC] Routine Oth 01/10/18 18:23 Ordered Code Status [Resuscitation Status] Routine Resus Stat 01/10/18 19:03 Ordered Medication Orders Diphenhydramine HCl (Benadryl) 25 mg IVPUSH ASDIRECTED PRN PRN Reason: SEVERE EXTRAPYRAMIDAL SYMP Diphenhydramine HCl (Benadryl) 25 mg IVPUSH ASDIRECTED PRN PRN Reason: PRURITUS Ephedrine Sulfate (Ephedrine Sulfate) 5 mg IVPUSH ASDIRECTED PRN PRN Reason: HYPOTENSION Hydroxyzine HCl (Vistaril) 25 - 50 mg IM Q6H PRN PRN Reason: PRURITUS Hydroxyzine HCl (Vistaril) 25 - 50 mg IM Q4H PRN PRN Reason: N/V Oxytocin/Sodium Chloride (Pitocin In Ns 20 Units/1,000 Ml) 20 unit in 1,000 mls @ 6 mls/hr IV TITRATE ALXE; Protocol Last Titration: 01/10/18 20:38 Dose: 6 munits/min, 18 mls/hr Titration: 01/10/18 20:07 Dose: 4 munits/min, 12 mls/hr Admin: 01/10/18 19:36 Dose: 2 munits/min, 6 mls/hr Lactated Ringer's (Ringers, Lactated) 1,000 mls @ 125 mls/hr IV ASDIRECTED ALEX Last Admin: 01/10/18 19:35 Dose: 125 mls/hr Naloxone HCl 0.4 mg/ Sodium (Chloride) 101 mls @ 25 mls/hr IV ASDIRECTED PRN PRN Reason: RESPIRATORY STATUS Miscellaneous Information (Remove Patch) 1 ea TRDERM ASDIRECTED ALEX Nalbuphine HCl (Nubain) 10 mg IVPUSH Q1H PRN PRN Reason: PRURITUS Naloxone HCl (Narcan) 0.1 mg IVPUSH ASDIRECTED PRN PRN Reason: RESPIRATROY STATUS Naloxone HCl (Narcan) 0.2 mg IVPUSH ASDIRECTED PRN PRN Reason: REVERSAL Naltrexone HCl (Naltrexone) 50 mg PO ONETIME ALEX Naltrexone HCl (Naltrexone) 50 mg PO ASDIRECTED PRN PRN Reason: REVERSAL Ondansetron HCl (Zofran) 4 mg IVPUSH Q6H PRN PRN Reason: NAUSEA Promethazine HCl (Phenergan) 0 mg IV Q4H PRN PRN Reason: N/V Scopolamine (Transderm-Scop) 1.5 mg TOP ONETIME [facility] Sodium Chloride (Saline Flush) 10 ml FLUSH ASDIRECTED PRN PRN Reason: Keep Vein Open Last Admin: 01/10/18 19:35 Dose: 10 ml Assessment/Plan Comment:: Augment labor with Pitocin
--- NOTE | 2018-01-11 00:34 | PCM.DEL ---
L & D Note - General Info Date of Service: 01/10/18 - Delivery Note Labor: Augmented by ARM Delivery Outcome: Livebirth Delivery Method: Spontaneous Vaginal Delivery-Single Infant Delivery Mode: Spontaneous Presentation: Left Occiput Posterior (LOP) Nuchal Cord: None Prep: Povidone-Iodine (Betadine Anesthesia Type: Intrathecal Amniotic Fluid Description: Clear Episiotomy Type: None Laceration: None Placenta: Intact, Spontaneous Cord: 3 Vessels Resuscitation Needed: No [place]: Bulb Syringe, [place] Used, Warmer Used Second Stage Interventions: Reports: Second Nurse Assessed Progress of Descent, Second Nurse Reviewed Contraction Pattern, Second Nurse Reviewed Heart Tones, Laboring Down, Nurse Consultation Requested, Pushing Effectively, Pushing , Stirrups/Leg Supports Delivery Comments (Free Text/Narrative):: Delivered a live male ,vigorous - General Info Date of Service: 01/10/18 Functional Status: Reports: Pain Controlled - Review of Systems General: Reports: No Symptoms HEENT: Reports: No Symptoms Pulmonary: Reports: No Symptoms Cardiovascular: Reports: No Symptoms Gastrointestinal: Reports: No Symptoms Genitourinary: Reports: No Symptoms Musculoskeletal: Reports: No Symptoms Skin: Reports: No Symptoms Neurological: Reports: No Symptoms Psychiatric: Reports: No Symptoms - Patient Data Vitals - Most Recent: Last Vital Signs Temp 98.2 F 01/10/18 16:19 Pulse 87 01/10/18 20:17 Resp 16 01/10/18 16:19 BP 124/74 01/10/18 20:07 Pulse Ox 100 01/10/18 20:17 Weight - Most Recent: 76.204 kg Lab Results Last 24 Hours: Laboratory Results - last 24 hr 01/10/18 Range/Units 16:46 Membrane Rupture Positive H (NEGATIVE) Med Orders - Current: Current Medications Diphenhydramine HCl (Benadryl) 25 mg IVPUSH ASDIRECTED PRN PRN Reason: SEVERE EXTRAPYRAMIDAL SYMP Diphenhydramine HCl (Benadryl) 25 mg IVPUSH ASDIRECTED PRN PRN Reason: PRURITUS Ephedrine Sulfate (Ephedrine Sulfate) 5 mg IVPUSH ASDIRECTED PRN PRN Reason: HYPOTENSION Hydroxyzine HCl (Vistaril) 25 - 50 mg IM Q6H PRN PRN Reason: PRURITUS Hydroxyzine HCl (Vistaril) 25 - 50 mg IM Q4H PRN PRN Reason: N/V Oxytocin/Sodium Chloride (Pitocin In Ns 20 Units/1,000 Ml) 20 unit in 1,000 mls @ 6 mls/hr IV TITRATE ALEX; Protocol Last Titration: 01/10/18 22:47 Dose: 10 munits/min, 30 mls/hr Lactated Ringer's (Ringers, Lactated) 1,000 mls @ 125 mls/hr IV ASDIRECTED ALEX Last Admin: 01/10/18 19:35 Dose: 125 mls/hr Naloxone HCl 0.4 mg/ Sodium (Chloride) 101 mls @ 25 mls/hr IV ASDIRECTED PRN PRN Reason: RESPIRATORY STATUS Miscellaneous Information (Remove Patch) 1 ea TRDERM ASDIRECTED ALEX Nalbuphine HCl (Nubain) 10 mg IVPUSH Q1H PRN PRN Reason: PRURITUS Last Admin: 01/11/18 00:26 Dose: 10 mg Naloxone HCl (Narcan) 0.1 mg IVPUSH ASDIRECTED PRN PRN Reason: RESPIRATROY STATUS Naloxone HCl (Narcan) 0.2 mg IVPUSH ASDIRECTED PRN PRN Reason: REVERSAL Naltrexone HCl (Naltrexone) 50 mg PO ONETIME ALEX Last Admin: 01/11/18 00:26 Dose: 50 mg Naltrexone HCl (Naltrexone) 50 mg PO ASDIRECTED PRN PRN Reason: REVERSAL Ondansetron HCl (Zofran) 4 mg IVPUSH Q6H PRN PRN Reason: NAUSEA Promethazine HCl (Phenergan) 0 mg IV Q4H PRN PRN Reason: N/V Scopolamine (Transderm-Scop) 1.5 mg TOP ONETIME ALEX Last Admin: 01/10/18 21:35 Dose: 1.5 mg Sodium Chloride (Saline Flush) 10 ml FLUSH ASDIRECTED PRN PRN Reason: Keep Vein Open Last Admin: 01/10/18 19:35 Dose: 10 ml Discontinued Medications Scopolamine (Transderm-Scop) Confirm Administered Dose 1.5 mg .ROUTE .STK-MED ONE Stop: 01/10/18 21:38 Last Admin: 01/10/18 22:41 Dose: Not Given Scopolamine (Transderm-Scop) 1.5 mg TOP ONETIME STA Stop: 01/10/18 22:17 Last Admin: 01/11/18 00:26 Dose: Not Given - Exam General: Alert, Oriented HEENT: Pupils Equal, Pupils Reactive, EOMI, Mucous Membr. Moist/Ester Neck: Supple Lungs: Clear to Auscultation, Normal Respiratory Effort Cardiovascular: Regular Rate, Regular Rhythm GI/Abdominal Exam: Normal Bowel Sounds, Soft, Non-Tender, No Organomegaly, No Distention, No Abnormal Bruit, No Mass, Pelvis Stable (Female) Exam: Normal External Exam, Normal Speculum Exam, Normal Bimanual Exam Back Exam: Normal Inspection, Full Range of Motion Extremities: Normal Inspection, Normal Range of Motion, Non-Tender, No Pedal Edema, Normal Capillary Refill Skin: Warm, Dry, Intact Wound/Incisions: Healing Well Neurological: No New Focal Deficit Psy/Mental Status: Alert, Normal Affect, Normal Mood - Problem List & Annotations (1) Ruptured, membranes, premature SNOMED Code(s): 42747150 Code(s): O42.90 - JIM ROM, 7TH0 BETW RUPT & ONST LABR, UNSP WEEKS OF GEST Status: Acute Current Visit: Yes Qualifiers: PROM onset of labor timing: onset of labor within 24 hours of rupture (2) SNOMED Code(s): 64661269 Code(s): Z34.90 - ENCNTR FOR SUPRVSN OF NORMAL , UNSP, UNSP TRIMESTER Status: Acute Current Visit: Yes Qualifiers: Weeks of gestation: 38 weeks Qualified Code(s): Z3A.38 - 38 weeks gestation of (3) Prolonged first stage (of labor) SNOMED Code(s): 68171062 Code(s): O63.0 - PROLONGED FIRST STAGE (OF LABOR) Status: Acute Current Visit: Yes (4) Delivery normal SNOMED Code(s): 73174276, 985583689 Code(s): O80 - ENCOUNTER FOR FULL-TERM UNCOMPLICATED DELIVERY Status: Acute Current Visit: Yes - Problem List Review Problem List Initiated/Reviewed/Updated: Yes - My Orders Last 24 Hours: My Active Orders 01/10/18 15:40 Admission Status [Patient Status] [ADT] Routine 01/10/18 16:19 Admission Status [Patient Status] [ADT] Routine 01/10/18 16:46 AMNISURE RUPTURE MEMBRAN [BF] Stat 01/10/18 18:23 Sodium Chloride 0.9% [Saline Flush] 10 ml FLUSH ASDIRECTED PRN Saline Lock Insert [OM.PC] Routine 01/10/18 19:03 Code Status [Resuscitation Status] Routine 01/10/18 19:04 Communication Order [RC] ASDIRECTED Communication Order [RC] ASDIRECTED Communication Order [RC] ASDIRECTED Communication Order [RC] ASDIRECTED Non Stress Test [RC] Click to Edit Notify Provider [RC] PRN Notify Provider [RC] STAT Vital Signs [RC] PER UNIT ROUTINE 01/10/18 19:15 Lactated Ringers [Ringers, Lactated] 1,000 ml IV ASDIRECTED Oxytocin/Normal Saline [Pitocin in NS 20 Units/1,000 ML] 20 unit in 1,000 ml IV TITRATE 01/10/18 22:43 Nalbuphine [Nubain] 10 mg IVPUSH Q1H PRN Naloxone [Narcan] 0.1 mg IVPUSH ASDIRECTED PRN Naloxone [Narcan] 0.2 mg IVPUSH ASDIRECTED PRN Naloxone [Narcan] 0.4 mg Sodium Chloride 0.9% [Normal Saline] 100 ml IV ASDIRECTED Naltrexone 50 mg PO ASDIRECTED PRN Naltrexone 50 mg PO ONETIME Promethazine [Phenergan] 0 mg IV Q4H PRN Remove Patch 1 ea TRDERM ASDIRECTED Scopolamine [Transderm-Scop] 1.5 mg TOP ONETIME diphenhydrAMINE [Benadryl] 25 mg IVPUSH ASDIRECTED PRN diphenhydrAMINE [Benadryl] 25 mg IVPUSH ASDIRECTED PRN ePHEDrine [ePHEDrine Sulfate] 5 mg IVPUSH ASDIRECTED PRN hydrOXYzine HCl [Vistaril] 25 - 50 mg IM Q4H PRN hydrOXYzine HCl [Vistaril] 25 - 50 mg IM Q6H PRN 01/10/18 22:51 Ondansetron [Zofran] 4 mg IVPUSH Q6H PRN - Plan Plan:: Routine Post care
[2018-01-11] MEDS: Acetaminophen 325 MG Tab PO PRN ×3 (08:54→20:43)
--- NOTE | 2018-01-11 15:40 | PCM.PNPP ---
- General Info Date of Service: 01/11/18 Admission Dx/Problem (Free Text): Patient Status Order with Admit Dx/Problem 01/10/18 15:40 Admission Status [Patient Status] [ADT] Routine 01/10/18 16:19 Admission Status [Patient Status] [ADT] Routine Admission Diagnosis/Problem Admission Diagnosis/Problem Functional Status: Reports: Pain Controlled - Review of Systems General: Reports: No Symptoms HEENT: Reports: No Symptoms Pulmonary: Reports: No Symptoms Cardiovascular: Reports: No Symptoms Gastrointestinal: Reports: No Symptoms Genitourinary: Reports: No Symptoms Musculoskeletal: Reports: No Symptoms Skin: Reports: No Symptoms Neurological: Reports: No Symptoms Psychiatric: Reports: No Symptoms - General Info Date of Service: 01/11/18 - Patient Data Vital Signs - Most Recent: Last Vital Signs Temp 98.9 F 01/11/18 02:00 Pulse 65 01/11/18 05:00 Resp 17 01/11/18 05:00 BP 106/57 L 01/11/18 05:00 Pulse Ox 100 01/11/18 05:00 Weight - Most Recent: 76.204 kg I&O - Last 24 Hours: Intake & Output 01/11/18 01/11/18 01/11/18 06:59 14:59 22:59 Output Total 400 Balance -400 Lab Results - Last 24 Hours: Laboratory Results - last 24 hr 01/10/18 01/11/18 Range/Units 16:46 06:15 WBC 9.9 (4.5-12.0) X10-3/uL RBC 3.44 (3.23-5.20) x10(6)uL Hgb 9.9 L (11.5-15.5) g/dL Hct 29.5 L (30.0-51.3) % MCV 85.8 (80-96) fL MCH 28.8 (27.7-33.6) pg MCHC 33.6 (32.2-35.4) g/dL RDW 22.3 H (11.5-15.5) % Plt Count 182 (125-369) X10(3)uL MPV 9.9 (7.4-10.4) fL Neut % (Auto) 70.7 (46-82) % Lymph % (Auto) 18.6 (13-37) % Dukes % (Auto) 10.0 (4-12) % Eos % (Auto) 0 L (1.0-5.0) % Baso % (Auto) 0 (0-2) % Neut # (Auto) 7.1 (1.6-8.3) # Lymph # (Auto) 1.8 (0.6-5.0) # Dukes # (Auto) 1.0 (0.0-1.3) # Eos # (Auto) 0.0 (0.0-0.8) # Baso # (Auto) 0.0 (0.0-0.2) # Membrane Rupture Positive H (NEGATIVE) Med Orders - Current: Current Medications Acetaminophen (Tylenol) 650 mg PO Q4H PRN PRN Reason: mild pain or fever Last Admin: 01/11/18 15:35 Dose: 650 mg Diphenhydramine HCl (Benadryl) 25 mg IVPUSH ASDIRECTED PRN PRN Reason: SEVERE EXTRAPYRAMIDAL SYMP Diphenhydramine HCl (Benadryl) 25 mg IVPUSH ASDIRECTED PRN PRN Reason: PRURITUS Ephedrine Sulfate (Ephedrine Sulfate) 5 mg IVPUSH ASDIRECTED PRN PRN Reason: HYPOTENSION Hydroxyzine HCl (Vistaril) 25 - 50 mg IM Q6H PRN PRN Reason: PRURITUS Hydroxyzine HCl (Vistaril) 25 - 50 mg IM Q4H PRN PRN Reason: N/V Oxytocin/Sodium Chloride (Pitocin In Ns 20 Units/1,000 Ml) 20 unit in 1,000 mls @ 6 mls/hr IV TITRATE ALEX; Protocol Last Titration: 01/10/18 22:47 Dose: 10 munits/min, 30 mls/hr Lactated Ringer's (Ringers, Lactated) 1,000 mls @ 125 mls/hr IV ASDIRECTED ALEX Last Admin: 01/10/18 19:35 Dose: 125 mls/hr Naloxone HCl 0.4 mg/ Sodium (Chloride) 101 mls @ 25 mls/hr IV ASDIRECTED PRN PRN Reason: RESPIRATORY STATUS Miscellaneous Information (Remove Patch) 1 ea TRDERM ASDIRECTED ALEX Nalbuphine HCl (Nubain) 10 mg IVPUSH Q1H PRN PRN Reason: PRURITUS Last Admin: 01/11/18 00:26 Dose: 10 mg Naloxone HCl (Narcan) 0.1 mg IVPUSH ASDIRECTED PRN PRN Reason: RESPIRATROY STATUS Naloxone HCl (Narcan) 0.2 mg IVPUSH ASDIRECTED PRN PRN Reason: REVERSAL Naltrexone HCl (Naltrexone) 50 mg PO ONETIME ALEX Last Admin: 01/11/18 00:26 Dose: 50 mg Naltrexone HCl (Naltrexone) 50 mg PO ASDIRECTED PRN PRN Reason: REVERSAL Ondansetron HCl (Zofran) 4 mg IVPUSH Q6H PRN PRN Reason: NAUSEA Promethazine HCl (Phenergan) 0 mg IV Q4H PRN PRN Reason: N/V Scopolamine (Transderm-Scop) 1.5 mg TOP ONETIME ALEX Last Admin: 01/10/18 21:35 Dose: 1.5 mg Sodium Chloride (Saline Flush) 10 ml FLUSH ASDIRECTED PRN PRN Reason: Keep Vein Open Last Admin: 01/10/18 19:35 Dose: 10 ml Discontinued Medications Scopolamine (Transderm-Scop) Confirm Administered Dose 1.5 mg .ROUTE .STK-MED ONE Stop: 01/10/18 21:38 Last Admin: 01/10/18 22:41 Dose: Not Given Scopolamine (Transderm-Scop) 1.5 mg TOP ONETIME STA Stop: 01/10/18 22:17 Last Admin: 01/11/18 00:26 Dose: Not Given - Infant Interaction Infant Disposition, : in Room with Family Infant Interaction: Holding Infant Infant Feeding: Bottle Fed Infant Support Person: - Recovery Exam Fundal Tone: Firm Fundal Level: At Umbilicus Fundal Placement: Midline Lochia Amount: Moderate Lochia Color: Rubra/Red Perineum Description: Intact, Minimal Bruising/Swelling Episiotomy/Laceration: None Bladder Status: Voiding Urinary Elimination: Voided - Exam General: Alert, Oriented HEENT: Pupils Equal Neck: Supple Lungs: Clear to Auscultation, Normal Respiratory Effort Cardiovascular: Regular Rate, Regular Rhythm GI/Abdominal Exam: Normal Bowel Sounds, Soft, Non-Tender, No Organomegaly, No Distention, No Abnormal Bruit, No Mass, Pelvis Stable Extremities: Normal Inspection, Normal Range of Motion, Non-Tender, No Pedal Edema, Normal Capillary Refill Skin: Warm, Dry, Intact Wound/Incisions: Healing Well Neurological: No New Focal Deficit Psy/Mental Status: Alert, Normal Affect, Normal Mood - Problem List & Annotations (1) Ruptured, membranes, premature SNOMED Code(s): 72373529 Code(s): O42.90 - JIM ROM, 7TH0 BETW RUPT & ONST LABR, UNSP WEEKS OF GEST Status: Acute Current Visit: Yes Qualifiers: PROM onset of labor timing: onset of labor within 24 hours of rupture (2) SNOMED Code(s): 39892819 Code(s): Z34.90 - ENCNTR FOR SUPRVSN OF NORMAL , UNSP, UNSP TRIMESTER Status: Acute Current Visit: Yes Qualifiers: Weeks of gestation: 38 weeks Qualified Code(s): Z3A.38 - 38 weeks gestation of (3) Prolonged first stage (of labor) SNOMED Code(s): 28543235 Code(s): O63.0 - PROLONGED FIRST STAGE (OF LABOR) Status: Acute Current Visit: Yes (4) Delivery normal SNOMED Code(s): 64287315, 004908818 Code(s): O80 - ENCOUNTER FOR FULL-TERM UNCOMPLICATED DELIVERY Status: Acute Current Visit: Yes (5) Anemia SNOMED Code(s): 052403872 Code(s): D64.9 - ANEMIA, UNSPECIFIED Status: Acute Current Visit: Yes - Problem List Review Problem List Initiated/Reviewed/Updated: Yes - My Orders Last 24 Hours: My Active Orders 01/10/18 16:00 Admission Status [Patient Status] [ADT] Routine 01/10/18 16:46 AMNISURE RUPTURE MEMBRAN [BF] Stat 01/10/18 18:23 Sodium Chloride 0.9% [Saline Flush] 10 ml FLUSH ASDIRECTED PRN Saline Lock Insert [OM.PC] Routine 01/10/18 19:03 Code Status [Resuscitation Status] Routine 01/10/18 19:15 Lactated Ringers [Ringers, Lactated] 1,000 ml IV ASDIRECTED Oxytocin/Normal Saline [Pitocin in NS 20 Units/1,000 ML] 20 unit in 1,000 ml IV TITRATE 01/10/18 22:43 Nalbuphine [Nubain] 10 mg IVPUSH Q1H PRN Naloxone [Narcan] 0.1 mg IVPUSH ASDIRECTED PRN Naloxone [Narcan] 0.2 mg IVPUSH ASDIRECTED PRN Naloxone [Narcan] 0.4 mg Sodium Chloride 0.9% [Normal Saline] 100 ml IV ASDIRECTED Naltrexone 50 mg PO ASDIRECTED PRN Naltrexone 50 mg PO ONETIME Promethazine [Phenergan] 0 mg IV Q4H PRN Remove Patch 1 ea TRDERM ASDIRECTED Scopolamine [Transderm-Scop] 1.5 mg TOP ONETIME diphenhydrAMINE [Benadryl] 25 mg IVPUSH ASDIRECTED PRN diphenhydrAMINE [Benadryl] 25 mg IVPUSH ASDIRECTED PRN ePHEDrine [ePHEDrine Sulfate] 5 mg IVPUSH ASDIRECTED PRN hydrOXYzine HCl [Vistaril] 25 - 50 mg IM Q4H PRN hydrOXYzine HCl [Vistaril] 25 - 50 mg IM Q6H PRN 01/10/18 22:51 Ondansetron [Zofran] 4 mg IVPUSH Q6H PRN 01/11/18 00:34 Vital Signs [RC] PFP Acetaminophen [Tylenol] 650 mg PO Q4H PRN Assess Lochia [WOMSER] Per Unit Routine Assess Uterine Involution [WOMSER] Per Unit Routine Perineal Care [OM.PC] Per Unit Routine - Plan Plan:: Routine Post care
--- NOTE | 2018-01-12 06:56 | PCM.PNPP ---
- General Info Date of Service: 01/12/18 Admission Dx/Problem (Free Text): Patient Status Order with Admit Dx/Problem 01/10/18 15:40 Admission Status [Patient Status] [ADT] Routine 01/10/18 16:19 Admission Status [Patient Status] [ADT] Routine Admission Diagnosis/Problem Admission Diagnosis/Problem Functional Status: Reports: Pain Controlled - Review of Systems General: Reports: No Symptoms HEENT: Reports: No Symptoms Pulmonary: Reports: No Symptoms Cardiovascular: Reports: No Symptoms Gastrointestinal: Reports: No Symptoms Genitourinary: Reports: No Symptoms Musculoskeletal: Reports: No Symptoms Skin: Reports: No Symptoms Neurological: Reports: No Symptoms Psychiatric: Reports: No Symptoms - General Info Date of Service: 01/12/18 - Patient Data Vital Signs - Most Recent: Last Vital Signs Temp 98.9 F 01/11/18 02:00 Pulse 65 01/11/18 05:00 Resp 17 01/11/18 05:00 BP 106/57 L 01/11/18 05:00 Pulse Ox 100 01/11/18 05:00 Weight - Most Recent: 76.204 kg Med Orders - Current: Current Medications Acetaminophen (Tylenol) 650 mg PO Q4H PRN PRN Reason: mild pain or fever Last Admin: 01/11/18 20:43 Dose: 650 mg Diphenhydramine HCl (Benadryl) 25 mg IVPUSH ASDIRECTED PRN PRN Reason: SEVERE EXTRAPYRAMIDAL SYMP Diphenhydramine HCl (Benadryl) 25 mg IVPUSH ASDIRECTED PRN PRN Reason: PRURITUS Ephedrine Sulfate (Ephedrine Sulfate) 5 mg IVPUSH ASDIRECTED PRN PRN Reason: HYPOTENSION Hydroxyzine HCl (Vistaril) 25 - 50 mg IM Q6H PRN PRN Reason: PRURITUS Hydroxyzine HCl (Vistaril) 25 - 50 mg IM Q4H PRN PRN Reason: N/V Oxytocin/Sodium Chloride (Pitocin In Ns 20 Units/1,000 Ml) 20 unit in 1,000 mls @ 6 mls/hr IV TITRATE ALEX; Protocol Last Titration: 01/10/18 22:47 Dose: 10 munits/min, 30 mls/hr Lactated Ringer's (Ringers, Lactated) 1,000 mls @ 125 mls/hr IV ASDIRECTED ALEX Last Admin: 01/10/18 19:35 Dose: 125 mls/hr Naloxone HCl 0.4 mg/ Sodium (Chloride) 101 mls @ 25 mls/hr IV ASDIRECTED PRN PRN Reason: RESPIRATORY STATUS Measles/Mumps/Rubella Vaccine Live (M-M-R Ii Vaccine) 0.5 ml SUBCUT .ONCE ONE Stop: 01/12/18 08:01 Miscellaneous Information (Remove Patch) 1 ea TRDERM ASDIRECTED ALEX Nalbuphine HCl (Nubain) 10 mg IVPUSH Q1H PRN PRN Reason: PRURITUS Last Admin: 01/11/18 00:26 Dose: 10 mg Naloxone HCl (Narcan) 0.1 mg IVPUSH ASDIRECTED PRN PRN Reason: RESPIRATROY STATUS Naloxone HCl (Narcan) 0.2 mg IVPUSH ASDIRECTED PRN PRN Reason: REVERSAL Naltrexone HCl (Naltrexone) 50 mg PO ONETIME ALEX Last Admin: 01/11/18 00:26 Dose: 50 mg Naltrexone HCl (Naltrexone) 50 mg PO ASDIRECTED PRN PRN Reason: REVERSAL Ondansetron HCl (Zofran) 4 mg IVPUSH Q6H PRN PRN Reason: NAUSEA Promethazine HCl (Phenergan) 0 mg IV Q4H PRN PRN Reason: N/V Scopolamine (Transderm-Scop) 1.5 mg TOP ONETIME ALEX Last Admin: 01/10/18 21:35 Dose: 1.5 mg Sodium Chloride (Saline Flush) 10 ml FLUSH ASDIRECTED PRN PRN Reason: Keep Vein Open Last Admin: 01/10/18 19:35 Dose: 10 ml Discontinued Medications Scopolamine (Transderm-Scop) Confirm Administered Dose 1.5 mg .ROUTE .STK-MED ONE Stop: 01/10/18 21:38 Last Admin: 01/10/18 22:41 Dose: Not Given Scopolamine (Transderm-Scop) 1.5 mg TOP ONETIME STA Stop: 01/10/18 22:17 Last Admin: 01/11/18 00:26 Dose: Not Given - Interaction Infant Disposition, : in Room with Family Interaction: Holding Feeding: Bottle Fed Support Person: - Recovery Exam Fundal Tone: Firm Fundal Level: At Umbilicus Fundal Placement: Midline Lochia Amount: Moderate Lochia Color: Rubra/Red Perineum Description: Intact, Minimal Bruising/Swelling Episiotomy/Laceration: None Bladder Status: Voiding Urinary Elimination: Voided - Exam General: Alert, Oriented HEENT: Pupils Equal Neck: Supple Lungs: Clear to Auscultation, Normal Respiratory Effort Cardiovascular: Regular Rate, Regular Rhythm GI/Abdominal Exam: Normal Bowel Sounds, Soft, Non-Tender, No Organomegaly, No Distention, No Abnormal Bruit, No Mass, Pelvis Stable Extremities: Normal Inspection, Normal Range of Motion, Non-Tender, No Pedal Edema, Normal Capillary Refill Skin: Warm, Dry, Intact Wound/Incisions: Healing Well Neurological: No New Focal Deficit Psy/Mental Status: Alert, Normal Affect, Normal Mood - Problem List & Annotations (1) Ruptured, membranes, premature SNOMED Code(s): 33566712 Code(s): O42.90 - JIM ROM, 7TH0 BETW RUPT & ONST LABR, UNSP WEEKS OF GEST Status: Acute Current Visit: Yes Qualifiers: PROM onset of labor timing: onset of labor within 24 hours of rupture (2) SNOMED Code(s): 33268447 Code(s): Z34.90 - ENCNTR FOR SUPRVSN OF NORMAL , UNSP, UNSP TRIMESTER Status: Acute Current Visit: Yes Qualifiers: Weeks of gestation: 38 weeks Qualified Code(s): Z3A.38 - 38 weeks gestation of (3) Prolonged first stage (of labor) SNOMED Code(s): 76976966 Code(s): O63.0 - PROLONGED FIRST STAGE (OF LABOR) Status: Acute Current Visit: Yes (4) Delivery normal SNOMED Code(s): 93157210, 977774006 Code(s): O80 - ENCOUNTER FOR FULL-TERM UNCOMPLICATED DELIVERY Status: Acute Current Visit: Yes (5) Anemia SNOMED Code(s): 743967243 Code(s): D64.9 - ANEMIA, UNSPECIFIED Status: Acute Current Visit: Yes - Problem List Review Problem List Initiated/Reviewed/Updated: Yes - My Orders Last 24 Hours: My Active Orders 01/11/18 16:20 Vaccines to be Administered [RC] .discharge 01/12/18 08:00 Measles, Mumps & Rubella [M-M-R II Vaccine] 0.5 ml SUBCUT .ONCE ONE 01/12/18 Lunch Regular Diet [DIET] - Plan Plan:: Routine Discharge
--- NOTE | 2018-01-12 07:03 | PCM.DCSUM1 ---
Discharge Summary - Hospital Course Free Text/Narrative:: Delvered vaginally Diagnosis: Stroke: No - Discharge Data Discharge Date: 01/12/18 Discharge Disposition: Home, Self-Care 01 Condition: Good - Discharge Diagnosis/Problem(s) (1) Ruptured, membranes, premature SNOMED Code(s): 35884739 ICD Code: O42.90 - JIM ROM, 7TH0 BETW RUPT & ONST LABR, UNSP WEEKS OF GEST Status: Acute Current Visit: Yes Qualifiers: PROM onset of labor timing: onset of labor within 24 hours of rupture (2) SNOMED Code(s): 24886306 ICD Code: Z34.90 - ENCNTR FOR SUPRVSN OF NORMAL , UNSP, UNSP TRIMESTER Status: Acute Current Visit: Yes Qualifiers: Weeks of gestation: 38 weeks Qualified Code(s): Z3A.38 - 38 weeks gestation of (3) Prolonged first stage (of labor) SNOMED Code(s): 77283376 ICD Code: O63.0 - PROLONGED FIRST STAGE (OF LABOR) Status: Acute Current Visit: Yes (4) Delivery normal SNOMED Code(s): 32716021, 671601945 ICD Code: O80 - ENCOUNTER FOR FULL-TERM UNCOMPLICATED DELIVERY Status: Acute Current Visit: Yes (5) Anemia SNOMED Code(s): 626817109 ICD Code: D64.9 - ANEMIA, UNSPECIFIED Status: Acute Current Visit: Yes - Discharge Plan Home Medications: Home Meds Vit #108/Iron/FA [ One Tablet] 1 tab PO DAILY 10/30/17 [History ] Ascorbic Acid [Vitamin C] 500 mg PO DAILY 01/10/18 [History] Ferrous Sulfate, Dried [Iron] 159 mg PO TID 01/10/18 [History] Patient Handouts: Vaginal Delivery, Baby Blues, Home Care Instructions for Mom, Vaginal Delivery, Care After Referrals: Joseph Terry MD [Primary Care Provider] - (6 weeks) - General Info Date of Service: 01/12/18 Subjective Update: Doing well - Patient Data Vitals - Most Recent: Last Vital Signs Temp 98.7 F 01/12/18 04:00 Pulse 58 L 01/12/18 04:00 Resp 18 01/12/18 04:00 BP 104/57 L 01/12/18 04:00 Pulse Ox 100 01/12/18 04:00 Weight - Most Recent: 76.204 kg Med Orders - Current: Current Medications Acetaminophen (Tylenol) 650 mg PO Q4H PRN PRN Reason: mild pain or fever Last Admin: 01/11/18 20:43 Dose: 650 mg Diphenhydramine HCl (Benadryl) 25 mg IVPUSH ASDIRECTED PRN PRN Reason: SEVERE EXTRAPYRAMIDAL SYMP Diphenhydramine HCl (Benadryl) 25 mg IVPUSH ASDIRECTED PRN PRN Reason: PRURITUS Ephedrine Sulfate (Ephedrine Sulfate) 5 mg IVPUSH ASDIRECTED PRN PRN Reason: HYPOTENSION Hydroxyzine HCl (Vistaril) 25 - 50 mg IM Q6H PRN PRN Reason: PRURITUS Hydroxyzine HCl (Vistaril) 25 - 50 mg IM Q4H PRN PRN Reason: N/V Oxytocin/Sodium Chloride (Pitocin In Ns 20 Units/1,000 Ml) 20 unit in 1,000 mls @ 6 mls/hr IV TITRATE ALEX; Protocol Last Titration: 01/10/18 22:47 Dose: 10 munits/min, 30 mls/hr Lactated Ringer's (Ringers, Lactated) 1,000 mls @ 125 mls/hr IV ASDIRECTED ALEX Last Admin: 01/10/18 19:35 Dose: 125 mls/hr Naloxone HCl 0.4 mg/ Sodium (Chloride) 101 mls @ 25 mls/hr IV ASDIRECTED PRN PRN Reason: RESPIRATORY STATUS Measles/Mumps/Rubella Vaccine Live (M-M-R Ii Vaccine) 0.5 ml SUBCUT .ONCE ONE Stop: 01/12/18 08:01 Miscellaneous Information (Remove Patch) 1 ea TRDERM ASDIRECTED ALEX Nalbuphine HCl (Nubain) 10 mg IVPUSH Q1H PRN PRN Reason: PRURITUS Last Admin: 01/11/18 00:26 Dose: 10 mg Naloxone HCl (Narcan) 0.1 mg IVPUSH ASDIRECTED PRN PRN Reason: RESPIRATROY STATUS Naloxone HCl (Narcan) 0.2 mg IVPUSH ASDIRECTED PRN PRN Reason: REVERSAL Naltrexone HCl (Naltrexone) 50 mg PO ONETIME ALEX Last Admin: 01/11/18 00:26 Dose: 50 mg Naltrexone HCl (Naltrexone) 50 mg PO ASDIRECTED PRN PRN Reason: REVERSAL Ondansetron HCl (Zofran) 4 mg IVPUSH Q6H PRN PRN Reason: NAUSEA Promethazine HCl (Phenergan) 0 mg IV Q4H PRN PRN Reason: N/V Scopolamine (Transderm-Scop) 1.5 mg TOP ONETIME ALEX Last Admin: 01/10/18 21:35 Dose: 1.5 mg Sodium Chloride (Saline Flush) 10 ml FLUSH ASDIRECTED PRN PRN Reason: Keep Vein Open Last Admin: 01/10/18 19:35 Dose: 10 ml Discontinued Medications Scopolamine (Transderm-Scop) Confirm Administered Dose 1.5 mg .ROUTE .STK-MED ONE Stop: 01/10/18 21:38 Last Admin: 01/10/18 22:41 Dose: Not Given Scopolamine (Transderm-Scop) 1.5 mg TOP ONETIME STA Stop: 01/10/18 22:17 Last Admin: 01/11/18 00:26 Dose: Not Given - Exam General: Reports: Alert, Oriented HEENT: Reports: Pupils Equal, Pupils Reactive, EOMI, Mucous Membr. Moist/[place] Neck: Reports: Supple Lungs: Reports: Clear to Auscultation, Normal Respiratory Effort Cardiovascular: Reports: Regular Rate, Regular Rhythm GI/Abdominal Exam: Normal Bowel Sounds, Soft, Non-Tender, No Organomegaly, No Distention, No Abnormal Bruit, No Mass, Pelvis Stable (Female) Exam: Normal External Exam, Normal Speculum Exam, Normal Bimanual Exam Rectal (Female) Exam: Normal Exam, Normal Rectal Tone Back Exam: Reports: Normal Inspection, Full Range of Motion Extremities: Normal Inspection, Normal Range of Motion, Non-Tender, No Pedal Edema, Normal Capillary Refill Skin: Reports: Warm, Dry, Intact Wound/Incisions: Reports: Healing Well Neurological: Reports: No New Focal Deficit Psy/Mental Status: Reports: Alert, Normal Affect, Normal Mood
[2018-01-12] MEDS ORDERED: Measles, Mumps & Rubella Vaccine 0.5 ML SDV SUBCUT ONE (08:00)
[2018-01-12] MEDS: Acetaminophen 325 MG Tab PO PRN (08:03)
[2018-01-12 09:00] VITALS: BP 111/68
== END 2018-01-12 10:45 | disposition home or self-care (01) | DRG 775 ==
LOC: FB.OB 15:59 → OBSVTOIN 16:00 → FB.OB 16:00
PROVIDERS: ADMIT Family Medicine; ATTEND Family Medicine
PROC: 10E0XZZ Delivery of Products of Conception, External Approach (ICD-10-PCS; principal; 2018-01-11)
PROC: 10907ZC Drainage of Amniotic Fluid, Therapeutic from Products of Conception, Via Natural or Artificial Opening (ICD-10-PCS; 2018-01-11)
DX: O42.90 Premature rupture of membranes, unspecified as to length of time between rupture and onset of labor, unspecified weeks of gestation (principal); O63.0 Prolonged first stage (of labor); Z3A.38 38 weeks gestation of pregnancy; Z37.0 Single live birth; O90.81 Anemia of the puerperium; Z86.59 Personal history of other mental and behavioral disorders; Z88.6 Allergy status to analgesic agent; Z88.8 Allergy status to other drugs, medicaments and biological substances
CPT/HCPCS: 36415; 59025; 59409; 84112; 85025; 90471; 90707; 99211; A9270-GY; J2300; J2590; J7050; J7120

== ENCOUNTER 2018-09-07 15:43 | Emergency (ER) | payer MEDICAID ==
[2018-09-07 16:04] VITALS: BP 113/65
--- NOTE | 2018-09-07 16:33 | EDM.PDOC ---
ED HPI GENERAL MEDICAL PROBLEM - General Chief Complaint: Skin Complaint Stated Complaint: HIVES Time Seen by Provider: 09/07/18 16:12 Source of Information: Reports: Patient History Limitations: Reports: No Limitations - History of Present Illness INITIAL COMMENTS - FREE TEXT/NARRATIVE: 28-year-old female who reports that she awoke from a nap at about 2 PM yesterday seeing all over and noticed that she had hives all over her trunk, arms and neck. She had no difficulty breathing. The rash was very itchy but there was no pain. She took Claritin yesterday and the symptoms improved and eventually went away today she developed recurrence of this rash on her trunk, arms and neck with intense itchiness. She is having no difficulty breathing. She is having no trouble swallowing. It is been no nausea or vomiting. She's had no sore throat. She's had no nasal congestion. She had no antecedent problems. She has had no new exposures. There have been no changes in her medications. She rates her pain as a 0/10. There are no other associated signs or symptoms. There are no other modifying factors. Onset: Other (Yesterday approximately 2 PM) Duration: Getting Worse, Recurring Location: Reports: Neck, Chest, Abdomen, Back, Upper Extremity, Left, Upper Extremity, Right Quality: Reports: Other (No pain just itching) Severity: Moderate (to severe) Improves with: Reports: Medication (Some relief with Claritin yesterday) Worsens with: Reports: None Context: Reports: Other (Awoke from sleep with this yesterday. 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 Gastrointestinal History: Reports: Cholelithiasis SPRING FORMER History: Reports: Other (See Below) Other SPRING FORMER History: Musculoskeletal History: Reports: Arthritis Neurological History: Reports: Migraines Psychiatric History: Reports: Anxiety, Bipolar, Depression Hematologic History: Reports: Anemia Oncologic (Cancer) History: Reports: Other (See Below) Other Oncologic History: ? cancerous cells in cervix - Past Surgical History GI Surgical History: Reports: Cholecystectomy Female Surgical History: Reports: LEEP Oncologic Surgical History: Reports: Other (See Below) Other Oncologic Surgeries/Procedures: leap procedure Social & Family History - Tobacco Use Smoking Status *Q: Former Smoker Years of Tobacco use: 1 Used Tobacco, but Quit: Yes Month/Year Tobacco Last Used: may - Caffeine Use Caffeine Use: Reports: Soda - Alcohol Use Alcohol Use History: Yes Alcohol Use Comment: Occasional alcohol use. 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 ED ROS GENERAL - Review of Systems Review Of Systems: See Below Constitutional: Reports: No Symptoms HEENT: Reports: No Symptoms Respiratory: Reports: No Symptoms Cardiovascular: Reports: No Symptoms Endocrine: Reports: No Symptoms GI/Abdominal: Reports: No Symptoms : Reports: No Symptoms Musculoskeletal: Reports: No Symptoms Skin: Reports: Urticaria (As above) Neurological: Reports: No Symptoms Hematologic/Lymphatic: Reports: No Symptoms Immunologic: Reports: No Symptoms, Other (No changes in medication. No new exposures.) ED EXAM, SKIN/RASH Exam: See Below Exam Limited By: No Limitations General Appearance: Alert, WD/WN, Mild Distress (Scratching all over.) Eye Exam: Bilateral Eye: EOMI, Normal Inspection, PERRL Ears: Normal External Exam, Hearing Grossly Normal Nose: Normal Inspection, Normal Mucosa, No Blood Throat/Mouth: Normal Inspection, Normal Voice, No Airway Compromise Head: Atraumatic, Normocephalic Neck: Supple, Non-Tender, Full Range of Motion Respiratory/Chest: No Respiratory Distress, Lungs Clear, Normal Breath Sounds, No Accessory Muscle Use, Chest Non-Tender Cardiovascular: Normal Peripheral Pulses, Regular Rate, Rhythm, No JVD Peripheral Pulses: 2+: Radial (L), Radial (R) GI/Abdominal: Normal Bowel Sounds, Soft, Non-Tender Back Exam: Other (Hives all over back otherwise normal exam) Extremities: Normal Range of Motion, Non-Tender, No Pedal Edema, Normal Capillary Refill Neurological: Alert, Oriented, CN II-XII Intact, No Motor/Sensory Deficits Skin: Warm, Dry, Intact, Normal Color, Rash Location, Skin: Neck, Chest, Abdomen, Back, Upper Extremity, Right, Upper Extremity, Left Characteristics: Urticarial Lymphatic: No Adenopathy Course - Vital Signs Last Recorded V/S: Last Vital Signs Temp 36.8 C 09/07/18 15:56 Pulse 75 09/07/18 15:56 Resp 18 09/07/18 15:56 BP 113/65 09/07/18 15:56 Pulse Ox 100 09/07/18 15:56 - Orders/Labs/Meds Meds: Medications Discontinued Medications Generic Name Dose Route Start Last Admin Trade Name Freq PRN Reason Stop Dose Admin Diphenhydramine HCl 50 mg 09/07/18 16:26 09/07/18 16:54 Benadryl IM 09/07/18 16:27 50 mg ONETIME ONE Administration Epinephrine HCl 0.3 mg 09/07/18 16:26 09/07/18 16:51 Adrenalin SUBCUT 09/07/18 16:27 0.3 mg ONETIME ONE Administration Famotidine 20 mg 09/07/18 16:27 09/07/18 16:50 Pepcid PO 09/07/18 16:28 20 mg ONETIME ONE Administration Prednisone 60 mg 09/07/18 16:27 09/07/18 16:51 Prednisone PO 09/07/18 16:28 60 mg ONETIME ONE Administration - Re-Assessments/Exams Free Text/Narrative Re-Assessment/Exam: 09/07/18 17:20: Rash is fading. Itchiness is essentially gone. She is a little jittery but otherwise feels well. Review for discharge. Departure - Departure Time of Disposition: 17:22 Disposition: Home, Self-Care 01 Condition: Good Clinical Impression: Urticaria - Discharge Information Prescriptions: predniSONE [Prednisone] 60 mg PO QAM 3 Days #9 tablet Ranitidine HCl 150 mg PO BID #10 tablet Instructions: Hives, [id number] Referrals: Joseph Terry MD [Primary Care Provider] - Forms: ED Department Discharge Additional Instructions: You have hives. I am unsure of the cause of your hives. You should continue to take Benadryl 50 mg by mouth 4 times a day for the next 2 days and then as needed for allergic reaction/rash. Drink plenty of fluids. Medication as prescribed (ranitidine 150 mg, prednisone). He should take a dose of the ranitidine and a dose of the Benadryl tonight prior to bed. Take the first dose of the prednisone tomorrow morning. Back to the emergency department for trouble breathing, high fever, unrelenting vomiting or any other concerning sign or symptom.
[2018-09-07] MEDS: Famotidine 20 MG Tab PO ONE (16:50)
[2018-09-07] MEDS: predniSONE 20 MG Tab PO ONE (16:51)
[2018-09-07] MEDS: EPINEPHrine 1 MG/ML SDV SUBCUT ONE (16:51)
[2018-09-07] MEDS: diphenhydrAMINE 50 MG/ML SDV IM ONE (16:54)
== END 2018-09-07 17:48 | disposition home or self-care (01) ==
LOC: FB.ED 15:43
DX: L50.9 Urticaria, unspecified (principal); Z88.6 Allergy status to analgesic agent; Z88.8 Allergy status to other drugs, medicaments and biological substances; Z90.49 Acquired absence of other specified parts of digestive tract; Z87.891 Personal history of nicotine dependence; Z86.2 Personal history of diseases of the blood and blood-forming organs and certain disorders involving the immune mechanism
CPT/HCPCS: 96372; 99282; A9270-GY; J0171; J1200

== ENCOUNTER 2021-04-13 18:43 | Emergency (ER) | payer MEDICAID ==
[2021-04-13 19:20] VITALS: BP 118/70; PULSE 75
--- NOTE | 2021-04-13 19:23 | EDM.PDOC ---
ED HPI GENERAL MEDICAL PROBLEM - General Stated Complaint: SEVERE BACK PAIN Time Seen by Provider: 04/13/21 19:10 Source of Information: Reports: Patient History Limitations: Reports: No Limitations - History of Present Illness INITIAL COMMENTS - FREE TEXT/NARRATIVE: 30-year-old female who reports beginning about 1-1/2 weeks ago she developed pain in her bilateral mid back going down to her lower back. It is a sharp and spasm-like pain that is worse with palpation and with movement. It has had a waxing and waning course over this time period and she was seen at [facility] with this on 04/04/2021 and had a chest x-ray performed and a covert test both of which were negative. She has continued to have this pain but it has improved some time and she felt that it was going away but for the past 2 days she reports the pain has come back and today she had the pain and slept most of the day but when she awoke the pain was up again to 7/10. She has had nausea with this and vomiting 3 she also has had diarrhea 5 in the past she feels somewhat weak and dizzy. The pain in her back is unchanged and still has a same qualities and exacerbating factors. She has had no dysuria or hematuria. She st ates the pain is still somewhat worse when she takes a deep breath. She has had no nasal congestion or sore throat. She has had trouble drinking liquids today and has had no appetite. There are no other associated signs or symptoms. There are no other modifying factors. 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 (see below) (Nothing.) Lower Back Pain Score (Numeric/FACES): 7 - Related Data Allergies Allergy/AdvReac Type Severity Reaction Status Date / Time ibuprofen Allergy Stomach Verified 04/13/21 19:19 Upset metoclopramide HCl Allergy Shaking Verified 04/13/21 19:19 [From Reglan] Home Meds: Home Meds Ranitidine HCl 150 mg PO BID #10 tablet 04/24/19 [Rx] predniSONE [Prednisone] 60 mg PO QAM 3 Days #9 tablet 09/07/18 [Rx] Ketorolac [Toradol] 10 mg PO Q6H PRN #20 tab 04/13/21 [Rx] Ondansetron [Zofran ODT] 4 mg PO Q6H PRN #10 tab.dis 04/13/21 [Rx] Past Medical History Gastrointestinal History: Reports: Cholelithiasis 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 Denies: Fever, Chills HEENT: Reports: Other (No nasal congestion. No sore throat.). Denies: Vision Change Respiratory: Denies: Shortness of Breath, Cough Cardiovascular: Denies: Chest Pain, Palpitations GI/Abdominal: Reports: Diarrhea, Nausea, Vomiting : Denies: Dysuria, Frequency, Hematuria Musculoskeletal: Reports: Back Pain Skin: Denies: Diaphoresis, Rash Neurological: Denies: Dizziness Hematologic/Lymphatic: Denies: Easy Bleeding, Easy Bruising ED EXAM, GENERAL - Physical Exam Exam: See Below Exam Limited By: No Limitations General Appearance: Alert, WD/WN, Mild Distress, Other (She is awake, alert and appropriate. She does appear to be in some) Eye Exam: Bilateral Eye: EOMI, Normal Inspection, PERRL Ears: Normal External Exam, Hearing Grossly Normal Ear Exam: Bilateral Ear: Auricle Normal Nose: Normal Inspection, Normal Mucosa, No Blood Throat/Mouth: Normal Voice, No Airway Compromise, Other (Dry mucous membranes. No erythema posteriorly.) Head: Atraumatic, Normocephalic Neck: Normal Inspection, Supple, Non-Tender, Full Range of Motion Respiratory/Chest: No Respiratory Distress, Lungs Clear, Normal Breath Sounds, No Accessory Muscle Use, Chest Non-Tender Cardiovascular: Normal Peripheral Pulses, Regular Rate, Rhythm, No Edema, No Murmur Peripheral Pulses: 2+: Radial (L), Radial (R), Dorsalis Pedis (L), Dorsalis Pedis (R) GI/Abdominal: Normal Bowel Sounds, Soft, Non-Tender, No Mass Back Exam: CVA Tenderness (R), CVA Tenderness (L), Muscle Spasm, Paraspinal Tenderness Extremities: Normal Inspection, Normal Range of Motion, Non-Tender, No Pedal Edema, Normal Capillary Refill Neurological: Alert, Oriented, CN II-XII Intact, Normal Cognition, No Motor/Sensory Deficits Psychiatric: Normal Affect Skin Exam: Warm, Dry, Intact, Normal Color, No Rash #1 Interpretation EKG Date: 04/13/21 Time: 20:10 Rhythm: NSR Rate (Beats/Min): 75 [place]: Normal P-Wave: Present QRS: Normal ST-T: Normal QT: Normal Comparison: NA - No Prior EKG Course - Vital Signs Last Recorded V/S: Last Vital Signs Temp 37.0 C 04/13/21 19:19 Pulse 75 04/13/21 19:19 Resp 18 04/13/21 19:19 BP 118/70 04/13/21 19:19 Pulse Ox 100 04/13/21 19:19 - Orders/Labs/Meds Orders: Active Orders 24 hr Category Date Time Status EKG Documentation Completion [RC] ASDIRECTED Care 04/13/21 20:03 Active EKG 12 Lead [EK] Routine Ther 04/13/21 20:02 Ordered Labs: Laboratory Tests 04/13/21 04/13/21 04/13/21 Range/Units 20:05 20:05 20:32 WBC 8.0 (3.0-10.3) x10-3/uL RBC 4.14 (3.60-5.20) x10(6)uL Hgb 10.6 L (11.4-15.5) g/dL Hct 32.8 L (34.2-48.2) % MCV 79.3 (76.7-100.5) fL MCH 25.5 (23.9-33.9) pg MCHC 32.1 (31.9-34.8) g/dL RDW 17.7 H (12.3-16.5) % Plt Count 336 (151-488) x10(3)uL MPV 7.5 (7.1-12.4) fL Neut % (Auto) 68.7 (30.8-76.2) % Lymph % (Auto) 22.0 (18.4-52.1) % [place] % (Auto) 8.1 (4.4-15.7) % Eos % (Auto) 0.9 (0.6-8.1) % Baso % (Auto) 0.3 (0.2-1.5) % Neut # (Auto) 5.5 (1.5-6.3) x10-3/uL Lymph # (Auto) 1.8 (1.0-4.4) x10-3/uL [place] # (Auto) 0.6 (0.3-1.0) x10-3/uL Eos # (Auto) 0.1 (0.0-0.8) x10-3/uL Baso # (Auto) 0.0 (0.0-0.1) x10-3/uL D-Dimer, Quantitative (0.0-0.59) mg/LFEU Sodium (135-145) mmol/L Potassium (3.5-5.3) mmol/L Chloride (100-110) mmol/L Carbon Dioxide (21-32) mmol/L BUN (7-18) mg/dL Creatinine (0.55-1.02) mg/dL Est Cr Clr Drug Dosing mL/min Estimated GFR (MDRD) (>60) BUN/Creatinine Ratio (9-20) Glucose (80-116) mg/dL Calcium (8.6-10.2) mg/dL Magnesium (1.8-2.5) mg/dL Total Bilirubin (0.1-1.3) mg/dL AST (5-25) IU/L ALT (12-36) U/L Alkaline Phosphatase (56-112) IU/L Total Protein (6.0-8.0) g/dL Albumin (3.5-5.2) g/dL Globulin g/dL Albumin/Globulin Ratio Urine Color Yellow (YELLOW) Urine Appearance Clear (CLEAR) Urine pH 7.0 H (5.0-6.5) Ur Specific Veteran 1.010 (1.010-1.025) Urine Protein Negative (NEGATIVE) mg/dL Urine Glucose (UA) Normal (NORMAL) mg/dL Urine Ketones Negative (NEGATIVE) mg/dL Urine Occult Blood Negative (NEGATIVE) Urine Nitrite Negative (NEGATIVE) Urine Bilirubin Negative (NEGATIVE) Urine Urobilinogen Normal (NEGATIVE) mg/dL Ur Leukocyte Esterase Negative (NEGATIVE) Urine RBC 0-5 (0-5) Urine WBC 0-5 (0-5) Ur Squamous Epith Cells Moderate H (NS,R,O) Urine Bacteria Few H (NS) Urine Mucus Few H (NS) Urine HCG, Qual Negative (NEGATIVE) 04/13/21 04/13/21 Range/Units 20:32 20:32 WBC (3.0-10.3) x10-3/uL RBC (3.60-5.20) x10(6)uL Hgb (11.4-15.5) g/dL Hct (34.2-48.2) % MCV (76.7-100.5) fL MCH (23.9-33.9) pg MCHC (31.9-34.8) g/dL RDW (12.3-16.5) % Plt Count (151-488) x10(3)uL MPV (7.1-12.4) fL Neut % (Auto) (30.8-76.2) % Lymph % (Auto) (18.4-52.1) % [place] % (Auto) (4.4-15.7) % Eos % (Auto) (0.6-8.1) % Baso % (Auto) (0.2-1.5) % Neut # (Auto) (1.5-6.3) x10-3/uL Lymph # (Auto) (1.0-4.4) x10-3/uL [place] # (Auto) (0.3-1.0) x10-3/uL Eos # (Auto) (0.0-0.8) x10-3/uL Baso # (Auto) (0.0-0.1) x10-3/uL D-Dimer, Quantitative 0.33 (0.0-0.59) mg/LFEU Sodium 138 (135-145) mmol/L Potassium 4.0 (3.5-5.3) mmol/L Chloride 102 (100-110) mmol/L Carbon Dioxide 26 (21-32) mmol/L BUN 12 (7-18) mg/dL Creatinine 0.7 (0.55-1.02) mg/dL Est Cr Clr Drug Dosing 99.63 mL/min Estimated GFR (MDRD) > 60 (>60) BUN/Creatinine Ratio 17.1 (9-20) Glucose 90 (80-116) mg/dL Calcium 8.6 (8.6-10.2) mg/dL Magnesium 2.0 (1.8-2.5) mg/dL Total Bilirubin 0.3 (0.1-1.3) mg/dL AST 13 (5-25) IU/L ALT 14 D (12-36) U/L Alkaline Phosphatase 67 (56-112) IU/L Total Protein 7.9 (6.0-8.0) g/dL Albumin 3.9 (3.5-5.2) g/dL Globulin 4.0 g/dL Albumin/Globulin Ratio 1.0 Urine Color (YELLOW) Urine Appearance (CLEAR) Urine pH (5.0-6.5) Ur Specific Veteran (1.010-1.025) Urine Protein (NEGATIVE) mg/dL Urine Glucose (UA) (NORMAL) mg/dL Urine Ketones (NEGATIVE) mg/dL Urine Occult Blood (NEGATIVE) Urine Nitrite (NEGATIVE) Urine Bilirubin (NEGATIVE) Urine Urobilinogen (NEGATIVE) mg/dL Ur Leukocyte Esterase (NEGATIVE) Urine RBC (0-5) Urine WBC (0-5) Ur Squamous Epith Cells (NS,R,O) Urine Bacteria (NS) Urine Mucus (NS) Urine HCG, Qual (NEGATIVE) Meds: Medications Discontinued Medications Generic Name Dose Route Start Last Admin Trade Name Freq PRN Reason Stop Dose Admin Promethazine HCl 12.5 mg/ 50.5 mls @ 200 mls/hr 04/13/21 20:04 04/13/21 20:33 Sodium Chloride IV 04/13/21 20:19 200 mls/hr ONETIME ONE Administration Sodium Chloride 1,000 mls @ 999 mls/hr 04/13/21 20:04 04/13/21 20:33 Normal Saline IV 04/13/21 21:04 999 mls/hr .BOLUS ONE Administration Ketorolac Tromethamine 30 mg 04/13/21 21:06 04/13/21 21:33 Ketorolac 30 Mg/Ml Sdv IVPUSH 04/13/21 21:07 30 mg ONETIME ONE Administration - Re-Assessments/Exams Free Text/Narrative Re-Assessment/Exam: 04/13/21 21:20: White blood cell count is 8.0. Hemoglobin is 10.6. Platelet count is normal. Sodium is 138. Potassium is 4.0. Bicarbonate was 26. BUN is 12 and creatinine is 0.7. Glucose is 90. LFTs are normal. A urinalysis was negative. A test is negative. Currently, the patient is receiving IV normal saline and Phenergan 12.5 mg IV. I will also order Toradol 30 mg IV. 04/13/21 22:55: Patient was able to ambulate to the bathroom and felt improved. She had been reporting that her nausea was improved but not gone but now she feels that her nausea has abated. The pain in her back is improved as well. I am unsure why she is having her symptoms. The back pain appears to be musculoskeletal. The other symptoms of vomiting and diarrhea appear to be viral in origin. She should rest. She is to increase her fluid intake. I am giving her a take-home pack of Compazine for any nausea or vomiting she may have. She can take Tylenol as needed for her pain. I will give her a prescription of Toradol for her pain begin (she has been able to tolerate this). She should follow-up with her primary provider this week. Precautions and reasons for return to the emergency department were discussed with the patient while she was in the emergency department and they were detailed in her discharge instructions. Departure - Departure Time of Disposition: 23:00 Disposition: Home, Self-Care 01 Condition: Good (Improved) Clinical Impression: Musculoskeletal back pain, Vomiting and diarrhea, Viral syndrome, Dehydration - Discharge Information Prescriptions: Ketorolac [Toradol] 10 mg PO Q6H PRN #20 tab PRN Reason: Moderate to severe pain Ondansetron [Zofran ODT] 4 mg PO Q6H PRN #10 tab.dis PRN Reason: Nausea/Vomiting Referrals: Joseph Terry MD [Primary Care Provider] - Forms: ED Department Discharge Additional Instructions: All of your blood tests were reassuringly normal. There was no evidence to support a blood clot in your lungs as we discussed. I am unsure of the cause of your back pain but it appears to be muscular in nature. I am not sure that it is related to the vomiting and diarrhea. Your vomiting and diarrhea. Be probably related to a viral infection. This should be short-lived. You were somewhat dehydrated and weak corrected that with IV fluids in the emergency department. He should rest. You can take Tylenol 1000 mg by mouth every 6 hours as needed for pain. Other medications as prescribed (Toradol 10 mg, Zofran 4 mg ODT, prochlorperazine--a take home pack). The prescriptions were electronically sent to [facility]. Follow-up with your primary provider this week for recheck. Back to the emergency department for, high fever, severe weakness or any other concerning signs or symptoms. Sepsis Event Note (ED) - Evaluation Sepsis Screening Result: No Definite Risk - Focused Exam Vital Signs: Vital Signs Temp Pulse Resp BP Pulse Ox 04/13/21 19:19 37.0 C 75 18 118/70 100 - My Orders Last 24 Hours: My Active Orders 04/13/21 20:02 EKG 12 Lead [EK] Routine 04/13/21 20:03 EKG Documentation Completion [RC] ASDIRECTED - Assessment/Plan Last 24 Hours: My Active Orders 04/13/21 20:02 EKG 12 Lead [EK] Routine 04/13/21 20:03 EKG Documentation Completion [RC] ASDIRECTED
[2021-04-13] MEDS ORDERED: Promethazine 12.5 MG in Sodium Chloride 0.9% 50 ML IV ONE (20:04)
[2021-04-13] MEDS ORDERED: Sodium Chloride 0.9% 1,000 ML IV ONE (20:04)
[2021-04-13] MEDS ORDERED: Ketorolac 30 MG/ML SDV IVPUSH ONE (21:06)
[2021-04-13] MEDS ORDERED: Prochlorperazine 5 MG Tab PO ONE (22:54)
== END 2021-04-13 23:20 | disposition home or self-care (01) ==
LOC: FB.ED 18:43
DX: M54.50 Low back pain, unspecified (principal); E86.0 Dehydration; B34.9 Viral infection, unspecified; R11.10 Vomiting, unspecified; R19.7 Diarrhea, unspecified; Z88.6 Allergy status to analgesic agent; Z88.8 Allergy status to other drugs, medicaments and biological substances; Z79.899 Other long term (current) drug therapy
CPT/HCPCS: 36415; 80053; 81001; 81025; 83735; 85025; 85379; 93005; 96361; 96374; 96375; 99284-25; J1885; J2550; J7030; Q0164

== ENCOUNTER 2021-06-12 21:40 | Emergency (ER) | payer MEDICAID ==
[2021-06-12] MEDS ORDERED: Ondansetron 4 MG Tab.DIS PO ONE (21:41)
[2021-06-12 21:48] VITALS: BP 158/60; PULSE 80
== END 2021-06-12 23:10 | disposition home or self-care (01) ==
LOC: FB.ED 21:40
DX: U07.1 COVID-19 (principal); Z88.8 Allergy status to other drugs, medicaments and biological substances
CPT/HCPCS: 36415; 80053; 83880; 84484; 85025; 85379; 99283; 99284; Q0162

== ENCOUNTER 2021-07-17 01:02 | Emergency (ER) | payer MEDICAID ==
[2021-07-17] MEDS: Sodium Chloride 0.9% 10 ML Syringe FLUSH PRN (01:40)
[2021-07-17] MEDS: Morphine 4 MG/ML VIAL IVPUSH STA (01:51)
[2021-07-17] MEDS: Ondansetron 4 MG/2 ML SDV IVPUSH STA (01:51)
[2021-07-17] MEDS: Sodium Chloride 0.9% 1,000 ML IV SCH (01:51)
[2021-07-17] MEDS: Iopamidol 755 Mg/ML 100 ML Bottle IV ONE (02:20)
[2021-07-17 06:56] VITALS: BP 108/62; PULSE 73
== END 2021-07-17 03:05 | disposition home or self-care (01) ==
LOC: FB.ED 01:02
DX: K29.70 Gastritis, unspecified, without bleeding (principal); D64.9 Anemia, unspecified; Z88.8 Allergy status to other drugs, medicaments and biological substances
CPT/HCPCS: 36415; 74177; 80053; 81001; 81025; 82150; 83690; 85025; 96374; 96375; 99284; 99284-25; J2270; J2405; J7030; Q9967

== ENCOUNTER 2021-11-10 18:53 | Emergency (ER) | payer MEDICAID ==
[2021-11-10] MEDS ORDERED: Meclizine 25 MG Tab PO ONE ×2 (18:54→19:21)
[2021-11-10 19:37] LABS: ESTIMATED GFR 100 mL/min (>60)
[2021-11-10 19:38] VITALS: BP 117/75; PULSE 72
== END 2021-11-10 20:40 | disposition home or self-care (01) ==
LOC: FB.ED 18:53
DX: R42 Dizziness and giddiness (principal); Z88.8 Allergy status to other drugs, medicaments and biological substances
CPT/HCPCS: 36415; 80048; 81001; 85027; 99281; 99283; A9270-GY

== ENCOUNTER 2022-01-23 02:33 | Emergency (ER) | payer MEDICAID ==
[2022-01-23] MEDS ORDERED: Amoxicillin/Clavulanate K 875-125 MG Tab PO STA (03:08)
[2022-01-23] MEDS ORDERED: Acetaminophen 500 MG Tab PO ONE (03:08)
[2022-01-23] MEDS ORDERED: traMADol 50 MG Tab PO STA (03:08)
[2022-01-23 04:57] VITALS: BP 120/68; PULSE 82
== END 2022-01-23 03:40 | disposition home or self-care (01) ==
LOC: FB.ED 02:33
DX: G44.009 Cluster headache syndrome, unspecified, not intractable (principal); J02.9 Acute pharyngitis, unspecified; Z88.6 Allergy status to analgesic agent; Z88.8 Allergy status to other drugs, medicaments and biological substances; Z79.899 Other long term (current) drug therapy; Z90.49 Acquired absence of other specified parts of digestive tract; Z86.16 Personal history of COVID-19
CPT/HCPCS: 99283; A9270

== ENCOUNTER 2022-03-15 20:21 | Emergency (ER) | payer MEDICAID ==
[2022-03-15] MEDS ORDERED: Sodium Chloride 0.9% 10 ML Syringe FLUSH PRN (20:37)
[2022-03-15] MEDS ORDERED: Ondansetron 4 MG/2 ML SDV IVPUSH ONE (20:40)
[2022-03-15] MEDS ORDERED: Morphine 4 MG/ML VIAL IVPUSH ONE (20:41)
[2022-03-15] MEDS ORDERED: Sodium Chloride 0.9% 1,000 ML IV SCH (20:45)
[2022-03-15 20:59] LABS: ESTIMATED GFR 117 mL/min (>60)
[2022-03-15] MEDS ORDERED: Iopamidol 755 Mg/ML 100 ML Bottle IV ONE (21:26)
[2022-03-15] MEDS ORDERED: Alum Hydroxide/Mag Hydroxide 15 ML, Lidocaine 2% 15 ML PO ONE ×2 (21:53)
[2022-03-15 22:05] VITALS: BP 110/67; PULSE 93
== END 2022-03-15 22:35 | disposition home or self-care (01) ==
LOC: FB.ED 20:21
DX: N83.202 Unspecified ovarian cyst, left side (principal); M19.90 Unspecified osteoarthritis, unspecified site; Z86.16 Personal history of COVID-19; Z88.6 Allergy status to analgesic agent; Z88.8 Allergy status to other drugs, medicaments and biological substances; Z79.899 Other long term (current) drug therapy
CPT/HCPCS: 36415; 74177; 80053; 81001; 81025; 82150; 83690; 85025; 87086; 87088; 87186; 96374; 96375; 99284-25; A9270-GY; J2270; J2405; J3490; J7030; Q9967

== ENCOUNTER 2022-05-14 15:04 | Emergency (ER) | payer MEDICAID ==
[2022-05-14 15:41] LABS: ESTIMATED GFR 127 mL/min (>60)
[2022-05-14] MEDS ORDERED: Ondansetron 4 MG/2 ML SDV IVPUSH ONE (15:58)
[2022-05-14] MEDS ORDERED: Sodium Chloride 0.9% 1,000 ML IV SCH (16:00)
[2022-05-14] MEDS ORDERED: Promethazine 25 MG/ML SDV IM STA (16:17)
[2022-05-14] MEDS ORDERED: Ketorolac 30 MG/ML SDV IVPUSH ONE (16:17)
[2022-05-14 18:00] VITALS: BP 111/52; PULSE 77
== END 2022-05-14 17:39 | disposition home or self-care (01) ==
LOC: FB.ED 15:04
DX: O21.0 Mild hyperemesis gravidarum (principal); O99.891 Other specified diseases and conditions complicating pregnancy; R10.2 Pelvic and perineal pain; Z88.6 Allergy status to analgesic agent; Z88.8 Allergy status to other drugs, medicaments and biological substances; Z79.899 Other long term (current) drug therapy; Z3A.09 9 weeks gestation of pregnancy
CPT/HCPCS: 36415; 80048; 81001; 85025; 96361; 96372; 96374; 96375; 99284; J1885; J2405; J2550; J7030

== ENCOUNTER 2023-06-02 21:29 | Emergency (ER) | payer MEDICAID ==
[2023-06-02] MEDS ORDERED: Ondansetron 4 MG Tab.DIS PO ONE (22:07)
[2023-06-02] MEDS ORDERED: Alum Hydroxide/Mag Hydroxide 15 ML, Lidocaine 2% 15 ML PO ONE ×2 (22:07)
[2023-06-02 22:18] LABS: APPEARANCE,URINE CLEAR (CLEAR); BACTERIA,URINE FEW (NS); BILIRUBIN,URINE SMALL (NEGATIVE); COLOR,URINE YELLOW (YELLOW); GLUCOSE,URINE NORMAL (NORMAL); KETONES,URINE NEGATIVE (NEGATIVE); LEUKOCYTE ESTERASE,URINE NEGATIVE (NEGATIVE); MUCUS,URINE FEW (NS); NITRITE,URINE NEGATIVE (NEGATIVE); OCCULT BLOOD,URINE TRACE (NEGATIVE); PROTEIN,URINE 30 mg/dL (NEGATIVE); RBC,URINE 0-5 (0-5); SQUAMOUS EPITHELIAL CELLS,UR MODERATE (NS,R,O); UROBILINOGEN,URINE 4 mg/dL (NEGATIVE); WBC,URINE 0-5 (0-5)
[2023-06-02 22:24] LABS: BASOPHILS PERCENT AUTO 0.2 % (0.2-1.5); EOSINOPHILS PERCENT AUTO 0.2 % (0.6-8.1); HEMATOCRIT 34.8 % (34.2-48.2); HEMOGLOBIN 11.8 g/dL (11.4-15.5); LYMPHOCYTES ABSOLUTE AUTO 0.5 x10-3/uL (1.0-4.4); LYMPHOCYTES PERCENT AUTO 5.6 % (18.4-52.1); MEAN CORPUSCULAR HEMOGLOBIN 27.4 pg (23.9-33.9); MEAN CORPUSCULAR VOLUME 80.8 fL (76.7-100.5); MEAN PLATELET VOLUME 8.2 fL (7.1-12.4); MONOCYTES ABSOLUTE AUTO 0.8 x10-3/uL (0.3-1.0); MONOCYTES PERCENT AUTO 8.6 % (4.4-15.7); NEUTROPHILS ABSOLUTE AUTO 8.2 x10-3/uL (1.5-6.3); NEUTROPHILS PERCENT AUTO 85.4 % (30.8-76.2); PLATELET COUNT,PLT 324 x10(3)uL (151-488); RED BLOOD CELL COUNT 4.31 x10(6)uL (3.60-5.20); RED CELL DISTRIBUTION WIDTH 15.6 % (12.3-16.5); WHITE BLOOD CELL COUNT,WBC 9.7 x10-3/uL (3.0-10.3)
[2023-06-02 22:26] LABS: BLOOD UREA NITROGEN,BUN 11 mg/dL (7-18); BUN/CREATININE RATIO 18.3 (9-20); CALCIUM 8.8 mg/dL (8.6-10.2); CARBON DIOXIDE,CO2 26 mmol/L (21-32); CHLORIDE,CL 102 mmol/L (100-110); CREATININE 0.6 mg/dL (0.55-1.02); EST CRCL DRUG DOSING (CG) 113.01 mL/min; ESTIMATED GFR 120 mL/min (>60); GLUCOSE RANDOM 118 mg/dL (80-116); POTASSIUM,K 3.8 mmol/L (3.5-5.3); SODIUM,NA 136 mmol/L (135-145)
[2023-06-02] MEDS ORDERED: Iopamidol 755 Mg/ML 100 ML Bottle IV SCH (23:15)
[2023-06-02] MEDS ORDERED: Prochlorperazine 10 MG/2 ML SDV IVPUSH ONE (23:29)
[2023-06-02] MEDS ORDERED: Acetaminophen 500 MG Tab PO ONE (23:30)
[2023-06-02] MEDS ORDERED: traMADol 50 MG Tab PO ONE (23:30)
[2023-06-02] MEDS ORDERED: Sodium Chloride 0.9% 1,000 ML IV SCH (23:30)
[2023-06-03 02:01] VITALS: BP 103/61; PULSE 98
== END 2023-06-03 01:57 | disposition home or self-care (01) ==
LOC: FB.ED 21:29
DX: K76.0 Fatty (change of) liver, not elsewhere classified (principal); N83.8 Other noninflammatory disorders of ovary, fallopian tube and broad ligament; R10.13 Epigastric pain; Z88.1 Allergy status to other antibiotic agents; Z88.6 Allergy status to analgesic agent; Z88.8 Allergy status to other drugs, medicaments and biological substances; Z79.899 Other long term (current) drug therapy; Z90.49 Acquired absence of other specified parts of digestive tract
CPT/HCPCS: 36415; 74177; 80048; 81001; 81025; 85025; 96361; 96374; 99284; A9270; J0780; J7030; Q0162; Q9967

== ENCOUNTER 2023-08-04 01:04 | Emergency (ER) | payer MEDICAID ==
[2023-08-04 01:17] VITALS: BP 120/73; PULSE 85
[2023-08-04 01:30] LABS: BILIRUBIN,URINE NEGATIVE (NEGATIVE); GLUCOSE,URINE NORMAL (NORMAL); KETONES,URINE NEGATIVE (NEGATIVE); LEUKOCYTE ESTERASE,URINE LARGE (NEGATIVE); NITRITE,URINE POSITIVE (NEGATIVE); OCCULT BLOOD,URINE LARGE (NEGATIVE); PROTEIN,URINE 100 mg/dL (NEGATIVE); UROBILINOGEN,URINE NORMAL (NEGATIVE)
[2023-08-04 01:36] LABS: APPEARANCE,URINE CLOUDY (CLEAR); BACTERIA,URINE MANY (NS); COLOR,URINE BROWN (YELLOW); RBC,URINE >100 (0-5); SQUAMOUS EPITHELIAL CELLS,UR FEW (NS,R,O); WBC,URINE >100 (0-5)
[2023-08-04] MEDS ORDERED: Nitrofurantoin Monohydrate/Macrocrystalline 100 MG Cap PO ONE (10:56)
== END 2023-08-04 01:56 | disposition home or self-care (01) ==
LOC: FB.ED 01:04
DX: N30.00 Acute cystitis without hematuria (principal); Z88.6 Allergy status to analgesic agent; Z88.5 Allergy status to narcotic agent; Z88.8 Allergy status to other drugs, medicaments and biological substances; Z86.16 Personal history of COVID-19; Z90.49 Acquired absence of other specified parts of digestive tract; Z79.899 Other long term (current) drug therapy
CPT/HCPCS: 81001; 87086; 87088; 87186; 99283; A9270-GY

== ENCOUNTER 2024-01-14 21:22 | Emergency (ER) | payer MEDICAID ==
[2024-01-14 21:47] LABS: BASOPHILS PERCENT AUTO 0.4 % (0.2-1.5); EOSINOPHILS ABSOLUTE AUTO 0.2 x10-3/uL (0.0-0.8); EOSINOPHILS PERCENT AUTO 1.6 % (0.6-8.1); HEMATOCRIT 31.8 % (34.2-48.2); HEMOGLOBIN 10.4 g/dL (11.4-15.5); LYMPHOCYTES ABSOLUTE AUTO 2.8 x10-3/uL (1.0-4.4); LYMPHOCYTES PERCENT AUTO 26.3 % (18.4-52.1); MEAN CORPUSCULAR HEMOGLOBIN 25.8 pg (23.9-33.9); MEAN CORPUSCULAR HGB CONC 32.6 g/dL (31.9-34.8); MEAN CORPUSCULAR VOLUME 79.1 fL (76.7-100.5); MEAN PLATELET VOLUME 8.3 fL (7.1-12.4); MONOCYTES PERCENT AUTO 9.5 % (4.4-15.7); NEUTROPHILS ABSOLUTE AUTO 6.6 x10-3/uL (1.5-6.3); NEUTROPHILS PERCENT AUTO 62.2 % (30.8-76.2); PLATELET COUNT,PLT 348 x10(3)uL (151-488); RED BLOOD CELL COUNT 4.01 x10(6)uL (3.60-5.20); RED CELL DISTRIBUTION WIDTH 16.2 % (12.3-16.5); WHITE BLOOD CELL COUNT,WBC 10.6 x10-3/uL (3.0-10.3)
[2024-01-14 21:57] LABS: BLOOD UREA NITROGEN,BUN 11 mg/dL (7-18); BUN/CREATININE RATIO 15.7 (9-20); CALCIUM 8.6 mg/dL (8.6-10.2); CARBON DIOXIDE,CO2 25 mmol/L (21-32); CHLORIDE,CL 105 mmol/L (100-110); CREATININE 0.7 mg/dL (0.55-1.02); ESTIMATED GFR 116 mL/min (>60); GLUCOSE RANDOM 114 mg/dL (80-116); POTASSIUM,K 3.7 mmol/L (3.5-5.3); SODIUM,NA 140 mmol/L (135-145)
[2024-01-14 22:03] LABS: A/G RATIO 0.9; ALANINE AMINOTRANSFERASE,ALT 20 U/L (12-36); ALBUMIN 3.5 g/dL (3.5-5.2); ALKALINE PHOSPHATASE 102 IU/L (56-112); ASPARTATE AMNIOTRANSFERASE,AST 15 IU/L (5-25); BILIRUBIN TOTAL 0.2 mg/dL (0.1-1.3); PROTEIN TOTAL,TP 7.4 g/dL (6.0-8.0)
[2024-01-14] MEDS: Sodium Chloride 0.9% 1,000 ML IV ONE (22:38)
[2024-01-14] MEDS: Amoxicillin/Clavulanate K 875-125 MG Tab PO ONE (22:38)
[2024-01-14] MEDS: Acetaminophen 500 MG Tab PO ONE (22:40)
[2024-01-14 23:12] VITALS: BP 127/76; PULSE 77
== END 2024-01-14 23:50 | disposition home or self-care (01) ==
LOC: FB.ED 21:22
DX: J01.10 Acute frontal sinusitis, unspecified (principal); R07.89 Other chest pain; Z86.16 Personal history of COVID-19; Z90.49 Acquired absence of other specified parts of digestive tract; Z79.899 Other long term (current) drug therapy; Z88.6 Allergy status to analgesic agent; Z88.8 Allergy status to other drugs, medicaments and biological substances
CPT/HCPCS: 36415; 71046; 80053; 84484; 85025; 86140; 87635; 93005; 99285; A9270; J7030; 93010; 99284; U0002

== ENCOUNTER 2024-08-24 22:04 | Emergency (ER) | payer MEDICAID ==
[2024-08-24 22:13] VITALS: BP 120/92; PULSE 80
[2024-08-24] MEDS: Ketorolac 30 MG/ML SDV IM ONE (22:22)
[2024-08-24] MEDS: hydrOXYzine HCl 50 MG/ML SDV IM ONE (22:23)
[2024-08-24] MEDS: diphenhydrAMINE 50 MG/ML SDV IM ONE (22:23)
[2024-08-24] MEDS: Ondansetron 4 MG Tab.DIS PO ONE (22:28)
== END 2024-08-24 22:32 | disposition home or self-care (01) ==
LOC: FB.ED 22:04
DX: G43.919 Migraine, unspecified, intractable, without status migrainosus (principal); Z88.6 Allergy status to analgesic agent; Z88.5 Allergy status to narcotic agent; Z88.8 Allergy status to other drugs, medicaments and biological substances; Z79.899 Other long term (current) drug therapy; Z86.16 Personal history of COVID-19
CPT/HCPCS: 96372; 99283; J1200; J1885; J3410; Q0162

== ENCOUNTER 2024-08-25 19:47 | Emergency (ER) | payer MEDICAID ==
[2024-08-25 19:59] VITALS: BP 128/74; PULSE 81
== END 2024-08-25 20:52 | disposition left against medical advice (07) ==
LOC: FB.ED 19:47
DX: Z53.21 Procedure and treatment not carried out due to patient leaving prior to being seen by health care provider (principal)

== ENCOUNTER 2024-12-21 20:09 | Emergency (ER) | payer MEDICAID ==
[2024-12-21 21:18] LABS: GLUCOSE,URINE NORMAL (NORMAL); OCCULT BLOOD,URINE NEGATIVE (NEGATIVE)
[2024-12-21 21:20] LABS: BASOPHILS ABSOLUTE AUTO 0.1 x10-3/uL (0.0-0.1); BASOPHILS PERCENT AUTO 0.6 % (0.2-1.5); EOSINOPHILS ABSOLUTE AUTO 0.1 x10-3/uL (0.0-0.8); EOSINOPHILS PERCENT AUTO 0.5 % (0.6-8.1); LYMPHOCYTES ABSOLUTE AUTO 2.8 x10-3/uL (1.0-4.4); LYMPHOCYTES PERCENT AUTO 23.5 % (18.4-52.1); MEAN PLATELET VOLUME 9.0 fL (7.1-12.4); MONOCYTES ABSOLUTE AUTO 1.1 x10-3/uL (0.3-1.0); MONOCYTES PERCENT AUTO 8.8 % (4.4-15.7); NEUTROPHILS ABSOLUTE AUTO 8.0 x10-3/uL (1.5-6.3); NEUTROPHILS PERCENT AUTO 66.6 % (30.8-76.2); PLATELET COUNT,PLT 365 x10(3)uL (151-488); RED BLOOD CELL COUNT 4.75 x10(6)uL (3.60-5.20); RED CELL DISTRIBUTION WIDTH 15.4 % (12.3-16.5); WHITE BLOOD CELL COUNT,WBC 12.0 x10-3/uL (3.0-10.3)
[2024-12-21 21:22] LABS: APPEARANCE,URINE CLEAR (CLEAR)
[2024-12-21 21:24] LABS: BLOOD UREA NITROGEN,BUN 15 mg/dL (7-18); CARBON DIOXIDE,CO2 27 mmol/L (21-32); CHLORIDE,CL 104 mmol/L (100-110); CREATININE 0.9 mg/dL (0.55-1.02); ESTIMATED GFR 85 mL/min (>60); GLUCOSE RANDOM 98 mg/dL (80-116); POTASSIUM,K 3.8 mmol/L (3.5-5.3); SODIUM,NA 140 mmol/L (135-145)
[2024-12-21 21:30] LABS: A/G RATIO 1.1; ALANINE AMINOTRANSFERASE,ALT 23 U/L (12-36); ASPARTATE AMNIOTRANSFERASE,AST 19 IU/L (5-25); BILIRUBIN TOTAL 0.5 mg/dL (0.1-1.3); PROTEIN TOTAL,TP 8.2 g/dL (6.0-8.0)
[2024-12-21] MEDS: Sodium Chloride 0.9% 10 ML Syringe FLUSH PRN (21:40)
[2024-12-22 01:22] VITALS: BP 100/58; PULSE 72
== END 2024-12-21 23:38 | disposition home or self-care (01) ==
LOC: FB.ED 20:09
DX: E86.0 Dehydration (principal); R10.9 Unspecified abdominal pain; K21.9 Gastro-esophageal reflux disease without esophagitis; Z88.5 Allergy status to narcotic agent; Z88.6 Allergy status to analgesic agent; Z79.899 Other long term (current) drug therapy
CPT/HCPCS: 36415; 80053; 81003; 81025; 83735; 85025; 86140; 96361; 96365; 99284-25; J2550; J7030; Q0169